=== PATIENT | female | born 1980 | race Caucasian/White ===

== ENCOUNTER → 2017-12-04 13:45 | Outpatient (CLI) | payer MEDICAID, SELFPAY ==
[2017-12-04 16:01] LABS: hCG Titer Quant., Serum 427 mIU/mL (<9 non-preg)
== END ==
PROVIDERS: Visit Provider Obstetrics & Gynecology
DX: O20.0 Threatened abortion (principal); Z3A.00 Weeks of gestation of pregnancy not specified
CPT/HCPCS: 36415; 84702

== ENCOUNTER → 2017-12-06 11:41 | Outpatient (CLI) | payer MEDICAID, SELFPAY ==
[2017-12-06 14:26] LABS: hCG Titer Quant., Serum 67 mIU/mL (<9 non-preg)
== END ==
PROVIDERS: Visit Provider Obstetrics & Gynecology
DX: O20.0 Threatened abortion (principal); Z3A.00 Weeks of gestation of pregnancy not specified
CPT/HCPCS: 36415; 84702

== ENCOUNTER → 2018-05-27 14:19 | Outpatient (CLI) | payer SELFPAY ==
[2018-05-27 20:13] LABS: Pregnancy, Serum, hCG Quali. NEGATIVE Negative (0-9 Nonpreg)
[2018-05-28 08:39] LABS: Progesterone Level 17.45 ng/mL (See Comment)
== END ==
PROVIDERS: Visit Provider Obstetrics & Gynecology
DX: N97.0 Female infertility associated with anovulation (principal)
CPT/HCPCS: 36415; 84144; 84703

== ENCOUNTER → 2018-06-27 10:46 | Outpatient (CLI) | payer SELFPAY ==
[2018-06-27 12:27] LABS: Progesterone Level 13.53 ng/mL (See Comment)
== END ==
PROVIDERS: Visit Provider Obstetrics & Gynecology
DX: N97.0 Female infertility associated with anovulation (principal)
CPT/HCPCS: 36415; 84144

== ENCOUNTER → 2018-07-25 10:29 | Outpatient (CLI) | payer SELFPAY ==
[2018-07-25 14:11] LABS: Progesterone Level 16.15 ng/mL (See Comment)
== END ==
PROVIDERS: Visit Provider Obstetrics & Gynecology
DX: N97.0 Female infertility associated with anovulation (principal)
CPT/HCPCS: 36415; 84144

== ENCOUNTER → 2018-08-28 16:05 | Outpatient (CLI) | payer MEDICAID, SELFPAY ==
[2018-08-28 20:50] LABS: Chlamydia Trachomatis by PCR Negative (Negative); Neisserai gonorrhoeae by PCR Negative (Negative); Probe Check PASS; Sample Adequacy Control PASS; Specimen Processing Control PASS
[2018-09-03 10:33] LABS: HPV Reflexed? NOT INDICATED
== END ==
PROVIDERS: Visit Provider Obstetrics & Gynecology
DX: Z12.4 Encounter for screening for malignant neoplasm of cervix (principal); Z11.3 Encounter for screening for infections with a predominantly sexual mode of transmission
CPT/HCPCS: 87491; 87591; 87624; 88175; G0145

== ENCOUNTER → 2018-09-18 11:07 | Outpatient (CLI) | payer MEDICAID, SELFPAY ==
[2018-09-18 13:49] LABS: Color, Urine Yellow (Yellow); Glucose, Dipstick Normal (Normal); Ketone-Dipstick Negative (Negative); Leukocyte Esterase-Dipstick 500 /ul (Negative); Nitrite-Dipstick Negative (Negative); Occult Blood-Urine Negative /ul (Negative); Protein-Dipstick Negative (Negative); Urine Bilirubin Dipstick Negative (Negative); Urine Clarity Cloudy (Clear); Urine Urobilinogen Normal (Normal)
[2018-09-18 13:52] LABS: Absolute Lymphocyte Count 1.16 X10^3/ul (0.83-4.51); Absolute Neutrophil Count 6.6 X10^3/uL (2.0-7.7); Basophil# 0.01 X10^3/uL; Basophil% 0.1 % (0-1); Eosinophil# 0.05 X10^3/uL; Eosinophils% 0.6 % (0-5); Hematocrit 40.3 % (37-47); Hemoglobin 13.2 g/dl (12.0-15.0); Lymphocyte # 1.16 X10^3/ul (4.0); Lymphocyte % 13.8 % (19-41); Mean Corp Hgb Conc 32.8 g/gl (32-36); Mean Corpuscular Hgb 30.1 pg (27.0-32.0); Mean Platelet Vol. 10.3 fl (6.2-12.0); Monocyte# 0.55 X10^3/uL; Monocyte% 6.6 % (0-10); Neutrophil # 6.61 X10^3/uL (2.7-7.7); Neutrophil % 78.8 % (47-70); Platelet Count 313 K/mm3 (150-450); RBC Distribution Width CV 13.4 % (11.6-14.6); RBC Distribution Width SD 44.6 fl (35.1-43.9); Red Blood Count 4.38 M/mm3 (4.2-5.4); White Blood Count 8.4 K/mm3 (4.4-11.0)
[2018-09-18 13:54] LABS: POSITIVE COUNT NO; POSITIVE DIFFERENTIAL NO; POSITIVE MORPHOLOGY NO
[2018-09-18 14:00] LABS: Amphetamine Urine VISTA NEGATIVE (<1000 ng/mL); Barbiturate Urine VISTA NEGATIVE (< 200 ng/mL); Benzodiazepine Urine VISTA NEGATIVE (< 200 ng/mL); Cocaine Urine VISTA NEGATIVE (< 300 ng/mL); Ecstacy Urine VISTA NEGATIVE (< 500 ng/mL); Methadone Urine VISTA NEGATIVE (< 300 ng/mL); PCP Urine VISTA NEGATIVE (< 25 ng/mL); THC Urine VISTA NEGATIVE (< 50 ng/mL); Vista UDS pH Range 6
[2018-09-18 14:11] LABS: Thyroid Stim Hormone (TSH) 0.88 uIU/mL (0.358-3.74)
[2018-09-18 14:51] LABS: HIV - WCH Non-Reactive (Nonreactive); Rubella IgG 136.1 IU/mL
[2018-09-19 01:35] LABS: Prenatal RPR NONREACTIVE (NONREACTIVE)
[2018-09-21 11:29] LABS: HEPATITIS B SURFACE AG Negative (Negative); Hep C Antibodies 0.1 s/co ratio (0.0-0.9)
== END ==
PROVIDERS: Visit Provider Obstetrics & Gynecology
DX: Z34.81 Encounter for supervision of other normal pregnancy, first trimester (principal)
CPT/HCPCS: 36415; 80307; 81002; 84443; 85025; 86703; 86762; 86803; 87340

== ENCOUNTER → 2019-01-07 10:10 | Outpatient (CLI) | payer MEDICAID, SELFPAY ==
[2019-01-07 14:26] LABS: Hematocrit 36.8 % (37-47); Hemoglobin 11.8 g/dl (12.0-15.0); Mean Corp Hgb Conc 32.1 g/gl (32-36); Mean Corpuscular Hgb 29.1 pg (27.0-32.0); Mean Corpuscular Volume 90.6 fL (81-99); Mean Platelet Vol. 9.8 fl (6.2-12.0); Platelet Count 245 K/mm3 (150-450); RBC Distribution Width CV 13.2 % (11.6-14.6); RBC Distribution Width SD 42.9 fl (35.1-43.9); Red Blood Count 4.06 M/mm3 (4.2-5.4)
[2019-01-07 14:28] LABS: Scan Indicated on CBC? Y/N NO
[2019-01-07 14:30] LABS: Glucose Challenge Gest 1H 50g 108 mg/dL (70-140)
== END ==
PROVIDERS: Visit Provider Obstetrics & Gynecology
DX: Z34.83 Encounter for supervision of other normal pregnancy, third trimester (principal)
CPT/HCPCS: 36415; 82950; 85027

== ENCOUNTER 2019-02-21 17:11 | Inpatient (IN) | payer MEDICAID, SELFPAY ==
[2019-02-21] MEDS: Lactated Ringers 1,000 ML 50 ML IV (16:15)
[2019-02-21] MEDS: Betamethasone/Betamethasone 30 MG/5 ML Vial 12 MG IM (16:31)
[2019-02-21 16:37] LABS: Hematocrit 34.9 % (37-47); Hemoglobin 11.6 g/dl (12.0-15.0); Mean Corp Hgb Conc 33.2 g/gl (32-36); Mean Corpuscular Hgb 27.8 pg (27.0-32.0); Mean Corpuscular Volume 83.5 fL (81-99); Mean Platelet Vol. 10.3 fl (6.2-12.0); Platelet Count 226 K/mm3 (150-450); RBC Distribution Width CV 13.9 % (11.6-14.6); RBC Distribution Width SD 41.8 fl (35.1-43.9); Red Blood Count 4.18 M/mm3 (4.2-5.4); White Blood Count 10.1 K/mm3 (4.4-11.0)
[2019-02-21 16:40] LABS: Scan Indicated on CBC? Y/N NO
[2019-02-21 16:43] LABS: International Normalized Ratio 0.9; Prothrombin Time (Protime)PT. 12.1 SECONDS (11.7-14.9)
[2019-02-21 16:44] LABS: Partial Thromboplast Time 22.9 Seconds (24.1-36.2)
[2019-02-21 16:50] LABS: AST(SGOT) 20 U/L (15-37); Alanine Aminotransfer ALT/SGPT 18 U/L (13-56); Creatinine, Serum 0.82 mg/dL (0.55-1.02); EST Glomerular Filtration Rate 83 mL/min (>60); Est Glom Filt Rate - Afr Amer 100 mL/min (>60); Uric Acid 5.9 mg/dL (2.6-6.0)
[2019-02-21] MEDS: Magnesium Sulfate 20 GM/500 ML BAG IV (16:50)
--- NOTE | 2019-02-21 17:06 | HP.PCM_ITS ---
- Problem List (1) Severe pre-eclampsia affecting fifth Status: Acute (2) Advanced maternal age during in third trimester Status: Acute History Date of Admission: 02/21/19 Final MARYCARMEN: 04/06/19 Gestational age: 33 Weeks and 5 Days History of this : This is a 38 year-old, G 5P2, at 33 and 5 weeks gestational age with irregular contractions and was found to have severely elevated blood pressures in the 180s-190s over 110s to 120s. She denied any headache blurry vision nausea vomiting or right upper quadrant pain upon admission, and she was initially stabilized with 2 doses of IV labetalol and was given 6 g magnesium sulfate followed by 2 g an hour. 12 mg of Celestone IM x1 was given. Preeclampsia labs were sent and returned within normal limits, urine protein still pending. She denies any vaginal bleeding or loss of fluid and admits good movement. She has had an occasional elevated blood pressure in the office but was not di agnosed with chronic hypertension and has not been on any medications. Allergies Penicillins Allergy (Verified 10/21/13 21:58) Rash Home Medications: Home Medications Vits [Prenatabs FA ] 1 tablet PO DAILY 10/14/13 Oxycodone HCl/Acetaminophen [Percocet 5/325] 1 - 2 tablet PO Q4H PRN PRN #20 tablet 11/08/13 Smoking Status: Never smoker Alcohol: None Number of Fetus(es): 1 Heart Tracins moderate variability reactive no decelerations category I tracing [place]: no regular History Past Pregnancies: Past Pregnancies Delivery Date Name GA/Weeks Outcome Route Weight Infant Gender Labor Length Anesthesia Delivery Location Provider FOB 11 39 [id number] 14 [phone] 4 sab 18 7 sab Labs: Mom's Problem List Problem Status Onset Code Severe pre-eclampsia affecting fifth Acute O14.10, O09.40 Advanced maternal age during in third trimester Acute Mom's Labs & Results 02/21/19 02/21/19 02/21/19 16:16 16:16 16:16 WBC 10.1 RBC 4.18 L Hgb 11.6 L Hct 34.9 L MCV 83.5 MCH 27.8 MCHC 33.2 RDW 13.9 RDW Differential 41.8 Plt Count 226 MPV 10.3 PT 12.1 INR 0.9 APTT 22.9 L Creatinine 0.82 Est GFR (MDRD) Af Amer 100 Est GFR (MDRD) Non-Af 83 Uric Acid 5.9 AST 20 ALT 18 Social History Smoking Status Never smoker Expected Infant Delivery Method: Spontaneous Vaginal Review of Systems Constitutional: Denies: Fever, Malaise Eyes: Denies: Blurred vision, Vision Change HEENT: Denies: Head Aches, Visual Changes Cardiovascular: Denies: Chest Pain, Palpitations Respiratory: Denies: Cough, Shortness of Breath, Wheezing Gastrointestinal: Reports: Abdominal Pain - contractions. Denies: Diarrhea, Nausea, Vomiting Genitourinary: Denies: Dysuria, Hematuria Musculoskeletal: Denies: Joint Pain, Muscle pain Skin: Denies: Lesions, Rash Neurological: Denies: Blurred vision, Focal weakness, Headaches Psychiatric: Denies: Anxiety, Depression Endocrine: Denies: Heat/ Cold Intolerance Hematologic/ Lymphatic: Denies: Easy Bruising, Easy Bleeding Physical Exam General: Alert, Cooperative, No apparent distress HEENT: Atraumatic, Normocephalic. Negative for: Thyromegaly, Lymphadenopathy Cardiovascular: Regular rate Lungs: Normal air movement Abdomen: Soft, Non Tender, Gravid Neurological: Deep Tendon Reflexes 2+/4 and Symmetrical, Neuro grossly intact. Negative for: Clonus [employer] J[employer]NEY[employer]: Normal external genitalia. Negative for: Vulvar lesions Estimated gestational size: Appropriate for gestational size Presentation: Cephalic Assessment/Plan All Active Problems Severe pre-eclampsia affecting fifth (Acute) Advanced maternal age during in third trimester (Acute) This is a 38 year-old, , at 33w5d weeks gestational age with severe preeclampsia 1. Severe preeclampsia?patient started on magnesium sulfate and IV labetalol per hypertensive protocol. Await urine protein creatinine ratio but preeclampsia labs within normal limits. Patient is symptomatically except for severely elevated blood pressures. We will start 200 mg p.o. labetalol for maintenance. Plan expectant management for 48 hours for administration of steroids and consider delivery at 34 weeks. Growth ultrasound ordered. urine tox screen ordered. 2. Prematurity?first dose of Celestone given, give second dose in 24 hours. 3. Advanced maternal age
--- NOTE | 2019-02-21 17:11 | US_ITS ---
STUDY: SECOND AND THIRD TRIMESTER OBSTETRICAL ULTRASOUND - LIMITED REASON FOR EXAM: Female, 38 years old. Growth. LMP: June 30, 2018 PRIOR ULTRASOUND: None. TECHNIQUE: Transabdominal TECHNICAL QUALITY: Adequate. FINDINGS: There is a single intrauterine fetus. The fetus is in a cephalic presentation. There is demonstrated cardiac activity with a heart rate of 125 bpm. There is a normal amniotic fluid volume. The largest amniotic fluid pocket measures 5.05 cm. The amniotic fluid index (JUNG) is 15.65 cm. The placenta is anterior and not low lying There are Grade 1 placental changes. The cervix measures 2.90 cm in length. BIOMETRY: BPD: 8.33 cm: 33 weeks, 4 days HC: 31.00 cm: 34 weeks, 5 days AC: 29.17 cm: 33 weeks, 2 days FL: 6.39 cm: 33 weeks, 1 days Age by LMP: 33 weeks, 5 days. MARYCARMEN by LMP: April 06, 2019. age by current US: 33 weeks, 5 days. MARYCARMEN by current US: April 06, 2019. Estimated weight: 2165 grams, +/- 316 grams, 31 percentile. US/OB Limited With Biometrics IMPRESSION: Single intrauterine with an estimated gestational age by ultrasound of 33 weeks and 5 days and an MARYCARMEN of April 06, 2019. Electronically Signed: Shasta Krause MD at 8:39 EDT Tel , Service support ,
[2019-02-21] MEDS: Labetalol 200 MG Tablet PO ×2 (17:28→22:06)
[2019-02-21 17:39] VITALS: BMI 35.3
[2019-02-21 18:11] LABS: Protein, Urine (Random) 9.1 mg/dL (<11.9); Protein:Creat Ratio 155 mg/g CRE (0-200)
[2019-02-21 18:14] LABS: Fibrinogen 482 mg/dl (203-444)
[2019-02-21 18:14] LABS: Amphetamine Urine VISTA NEGATIVE (<1000 ng/mL); Barbiturate Urine VISTA NEGATIVE (< 200 ng/mL); Benzodiazepine Urine VISTA NEGATIVE (< 200 ng/mL); Cocaine Urine VISTA NEGATIVE (< 300 ng/mL); Ecstacy Urine VISTA NEGATIVE (< 500 ng/mL); Methadone Urine VISTA NEGATIVE (< 300 ng/mL); PCP Urine VISTA NEGATIVE (< 25 ng/mL); THC Urine VISTA NEGATIVE (< 50 ng/mL); Vista UDS pH Range 6
[2019-02-21 19:59] LABS: Probe Check PASS
[2019-02-21 20:00] LABS: Group B Strep DNA By PCR POSITIVE (Negative)
[2019-02-22] MEDS: Magnesium Sulfate 20 GM/500 ML BAG IV ×2 (04:58→16:09)
[2019-02-22 06:28] LABS: Absolute Lymphocyte Count 0.91 X10^3/ul (0.83-4.51); Absolute Neutrophil Count 11.1 X10^3/uL (2.0-7.7); Hematocrit 34.8 % (37-47); Hemoglobin 11.3 g/dl (12.0-15.0); Lymphocyte # 0.91 X10^3/ul (4.0); Lymphocyte % 7.2 % (19-41); Mean Corp Hgb Conc 32.5 g/gl (32-36); Mean Corpuscular Hgb 27.2 pg (27.0-32.0); Mean Corpuscular Volume 83.9 fL (81-99); Mean Platelet Vol. 10.5 fl (6.2-12.0); Monocyte# 0.47 X10^3/uL; Monocyte% 3.7 % (0-10); Neutrophil # 11.14 X10^3/uL (2.7-7.7); Neutrophil % 88.7 % (47-70); Platelet Count 236 K/mm3 (150-450); RBC Distribution Width CV 14.1 % (11.6-14.6); RBC Distribution Width SD 42.8 fl (35.1-43.9); Red Blood Count 4.15 M/mm3 (4.2-5.4); White Blood Count 12.6 K/mm3 (4.4-11.0)
[2019-02-22 06:31] LABS: POSITIVE COUNT NO; POSITIVE DIFFERENTIAL NO; POSITIVE MORPHOLOGY NO
--- NOTE | 2019-02-22 06:47 | NURSING ---
I&O total for this shift
[2019-02-22 06:53] LABS: BUN 9 mg/dL (7-18); Creatinine, Serum 0.88 mg/dL (0.55-1.02); Glucose 141 mg/dL (74-106)
[2019-02-22 06:54] LABS: ALB/GLOB Ratio 0.6 RATIO (0.9-2.4); AST(SGOT) 18 U/L (15-37); Alanine Aminotransfer ALT/SGPT 19 U/L (13-56); Albumin, Serum 2.6 g/dL (3.2-5.0); Alkaline Phosphatase 184 U/L (45-117); Anion Gap 10 (5-15); BUN/Creat Ratio 10.2 RATIO (10-20); Calcium,Total 7.7 mg/dL (8.5-10.1); Chloride 106 mmol/L (98-107); EST Glomerular Filtration Rate 76 mL/min (>60); Est Glom Filt Rate - Afr Amer 92 mL/min (>60); Globulin 4.2 g/dL (2.2-4.2); Protein, Total 6.8 g/dL (6.4-8.2); Sodium Level 137 mmol/L (136-145)
--- NOTE | 2019-02-22 09:59 | PN.OBGYN_ITS ---
Patient Problems: Active and Suspected Problems GBS (group B Streptococcus carrier), +RV culture, currently (Acute) Severe pre-eclampsia affecting fifth (Acute) Advanced maternal age during in third trimester (Acute) Subjective: no BRAVO BV no vb lof good fm no regular ctx - Physical Exam General: Alert, Oriented x3 Lungs: Normal air movement Cardiovascular: Regular rate Abdomen: Soft, Non Tender Extremities: - - no clonus Neurological: Cranial nerves II-XII grossly intact Weight: 198 lb 3.129 oz Body Mass Index (BMI) 35.3 Intake and Output for Last 24 Hours 02/20/19 02/21/19 02/22/19 23:59 23:59 23:59 Intake Total 2100 / 2100 Output Total 400 / 400 1800 / 1800 Balance -400 / -400 300 / 300 Laboratory Tests Past 24 Hrs 02/21/19 02/21/19 02/21/19 16:16 16:16 16:16 WBC 10.1 RBC 4.18 L Hgb 11.6 L Hct 34.9 L MCV 83.5 MCH 27.8 MCHC 33.2 RDW 13.9 RDW Differential 41.8 Plt Count 226 MPV 10.3 Immature Gran % (Auto) Neut % (Auto) Lymph % (Auto) [place] % (Auto) Eos % (Auto) Baso % (Auto) Absolute Neuts (auto) Absolute Lymphs (auto) Total Counted PT 12.1 INR 0.9 APTT 22.9 L Fibrinogen Sodium Potassium Chloride Carbon Dioxide Anion Gap BUN Creatinine 0.82 Estim Creat Clear Calc Est GFR (MDRD) Af Amer 100 Est GFR (MDRD) Non-Af 83 BUN/Creatinine Ratio Glucose Uric Acid 5.9 Calcium Total Bilirubin AST 20 ALT 18 Alkaline Phosphatase Total Protein Albumin Globulin Albumin/Globulin Ratio U Random Total Protein Urine Creatinine Protein/Creatinin Ratio Urine Opiates Screen Urine Methadone Screen Ur Barbiturates Screen Ur Phencyclidine Scrn Ur Amphetamines Screen U Methamphetamin-MDMA U Benzodiazepines Scrn Urine Cocaine Screen U Cannabinoids Screen Ur Drug Screen Comment Group B Strep DNA Specimen Comment 02/21/19 02/21/19 02/21/19 16:16 17:45 17:45 WBC RBC Hgb Hct MCV MCH MCHC RDW RDW Differential Plt Count MPV Immature Gran % (Auto) Neut % (Auto) Lymph % (Auto) [place] % (Auto) Eos % (Auto) Baso % (Auto) Absolute Neuts (auto) Absolute Lymphs (auto) Total Counted PT INR APTT Fibrinogen 482 H Sodium Potassium Chloride Carbon Dioxide Anion Gap BUN Creatinine Estim Creat Clear Calc Est GFR (MDRD) Af Amer Est GFR (MDRD) Non-Af BUN/Creatinine Ratio Glucose Uric Acid Calcium Total Bilirubin AST ALT Alkaline Phosphatase Total Protein Albumin Globulin Albumin/Globulin Ratio U Random Total Protein 9.1 Urine Creatinine 58.80 Protein/Creatinin Ratio 155 Urine Opiates Screen NEGATIVE Urine Methadone Screen NEGATIVE Ur Barbiturates Screen NEGATIVE Ur Phencyclidine Scrn NEGATIVE Ur Amphetamines Screen NEGATIVE U Methamphetamin-MDMA NEGATIVE U Benzodiazepines Scrn NEGATIVE Urine Cocaine Screen NEGATIVE U Cannabinoids Screen NEGATIVE Ur Drug Screen Comment Group B Strep DNA Specimen Comment 02/21/19 02/22/19 02/22/19 18:50 06:15 06:15 WBC 12.6 H RBC 4.15 L Hgb 11.3 L Hct 34.8 L MCV 83.9 MCH 27.2 MCHC 32.5 RDW 14.1 RDW Differential 42.8 Plt Count 236 MPV 10.5 Immature Gran % (Auto) 0.400 Neut % (Auto) 88.7 H Lymph % (Auto) 7.2 L [place] % (Auto) 3.7 Eos % (Auto) 0.0 Baso % (Auto) 0.0 Absolute Neuts (auto) 11.1 H Absolute Lymphs (auto) 0.91 Total Counted Not Reportable PT INR APTT Fibrinogen Sodium 137 Potassium 4.0 Chloride 106 Carbon Dioxide 21.0 Anion Gap 10 BUN 9 Creatinine 0.88 Estim Creat Clear Calc 71.70 Est GFR (MDRD) Af Amer 92 Est GFR (MDRD) Non-Af 76 BUN/Creatinine Ratio 10.2 Glucose 141 H Uric Acid Calcium 7.7 L Total Bilirubin 0.20 AST 18 ALT 19 Alkaline Phosphatase 184 H Total Protein 6.8 Albumin 2.6 L Globulin 4.2 Albumin/Globulin Ratio 0.6 L U Random Total Protein Urine Creatinine Protein/Creatinin Ratio Urine Opiates Screen Urine Methadone Screen Ur Barbiturates Screen Ur Phencyclidine Scrn Ur Amphetamines Screen U Methamphetamin-MDMA U Benzodiazepines Scrn Urine Cocaine Screen U Cannabinoids Screen Ur Drug Screen Comment Group B Strep DNA POSITIVE H Specimen Comment Not Reportable Medical Necessity - Tobacco Use Smoking Status: Never smoker Assessment/Plan All Active Problems GBS (group B Streptococcus carrier), +RV culture, currently (Acute) Severe pre-eclampsia affecting fifth (Acute) Advanced maternal age during in third trimester (Acute) This is a 38 year-old, , at 33w6d weeks gestational age with severe preeclampsia 1. Severe preeclampsia?patient started on magnesium sulfate and IV labetalol per hypertensive protocol. Await urine protein creatinine ratio but preeclampsia labs within normal limits. Patient is symptomatically except for severely elevated blood pressures. We will start 200 mg p.o. labetalol for maintenance. Plan expectant management for 48 hours for administration of steroids and consider delivery at 34 weeks. Growth ultrasound ordered. urine tox screen ordered. 2. Prematurity?first dose of Celestone given, give second dose today. 3. Advanced maternal age
[2019-02-22] MEDS: Labetalol 200 MG Tablet PO ×2 (10:21→21:18)
[2019-02-22] MEDS: Lactated Ringers 1,000 ML 50 ML IV (12:30)
--- NOTE | 2019-02-22 13:38 | PCM.PN.OB ---
Patient Problems: Active and Suspected Problems GBS (group B Streptococcus carrier), +RV culture, currently (Acute) Severe pre-eclampsia affecting fifth (Acute) Advanced maternal age during in third trimester (Acute) Subjective: no BRAVO BV, co some anxiety about the current situation, questions answered for the patient. she denies any vb lof admits good fm. no N V RUQ pain. - Physical Exam General: Alert, Oriented x3 Weight: 198 lb 3.129 oz Body Mass Index (BMI) 35.3 Intake and Output for Last 24 Hours 02/20/19 02/21/19 02/22/19 23:59 23:59 23:59 Intake Total 2698 / 2698 Output Total 400 / 400 2225 / 2225 Balance -400 / -400 473 / 473 Laboratory Tests Past 24 Hrs 02/21/19 02/21/19 02/21/19 16:16 16:16 16:16 WBC 10.1 RBC 4.18 L Hgb 11.6 L Hct 34.9 L MCV 83.5 MCH 27.8 MCHC 33.2 RDW 13.9 RDW Differential 41.8 Plt Count 226 MPV 10.3 Immature Gran % (Auto) Neut % (Auto) Lymph % (Auto) [place] % (Auto) Eos % (Auto) Baso % (Auto) Absolute Neuts (auto) Absolute Lymphs (auto) Total Counted PT 12.1 INR 0.9 APTT 22.9 L Fibrinogen Sodium Potassium Chloride Carbon Dioxide Anion Gap BUN Creatinine 0.82 Estim Creat Clear Calc Est GFR (MDRD) Af Amer 100 Est GFR (MDRD) Non-Af 83 BUN/Creatinine Ratio Glucose Uric Acid 5.9 Calcium Total Bilirubin AST 20 ALT 18 Alkaline Phosphatase Total Protein Albumin Globulin Albumin/Globulin Ratio U Random Total Protein Urine Creatinine Protein/Creatinin Ratio Urine Opiates Screen Urine Methadone Screen Ur Barbiturates Screen Ur Phencyclidine Scrn Ur Amphetamines Screen U Methamphetamin-MDMA U Benzodiazepines Scrn Urine Cocaine Screen U Cannabinoids Screen Ur Drug Screen Comment Group B Strep DNA Specimen Comment 02/21/19 02/21/19 02/21/19 16:16 17:45 17:45 WBC RBC Hgb Hct MCV MCH MCHC RDW RDW Differential Plt Count MPV Immature Gran % (Auto) Neut % (Auto) Lymph % (Auto) [place] % (Auto) Eos % (Auto) Baso % (Auto) Absolute Neuts (auto) Absolute Lymphs (auto) Total Counted PT INR APTT Fibrinogen 482 H Sodium Potassium Chloride Carbon Dioxide Anion Gap BUN Creatinine Estim Creat Clear Calc Est GFR (MDRD) Af Amer Est GFR (MDRD) Non-Af BUN/Creatinine Ratio Glucose Uric Acid Calcium Total Bilirubin AST ALT Alkaline Phosphatase Total Protein Albumin Globulin Albumin/Globulin Ratio U Random Total Protein 9.1 Urine Creatinine 58.80 Protein/Creatinin Ratio 155 Urine Opiates Screen NEGATIVE Urine Methadone Screen NEGATIVE Ur Barbiturates Screen NEGATIVE Ur Phencyclidine Scrn NEGATIVE Ur Amphetamines Screen NEGATIVE U Methamphetamin-MDMA NEGATIVE U Benzodiazepines Scrn NEGATIVE Urine Cocaine Screen NEGATIVE U Cannabinoids Screen NEGATIVE Ur Drug Screen Comment Group B Strep DNA Specimen Comment 02/21/19 02/22/19 02/22/19 18:50 06:15 06:15 WBC 12.6 H RBC 4.15 L Hgb 11.3 L Hct 34.8 L MCV 83.9 MCH 27.2 MCHC 32.5 RDW 14.1 RDW Differential 42.8 Plt Count 236 MPV 10.5 Immature Gran % (Auto) 0.400 Neut % (Auto) 88.7 H Lymph % (Auto) 7.2 L [place] % (Auto) 3.7 Eos % (Auto) 0.0 Baso % (Auto) 0.0 Absolute Neuts (auto) 11.1 H Absolute Lymphs (auto) 0.91 Total Counted Not Reportable PT INR APTT Fibrinogen Sodium 137 Potassium 4.0 Chloride 106 Carbon Dioxide 21.0 Anion Gap 10 BUN 9 Creatinine 0.88 Estim Creat Clear Calc 71.70 Est GFR (MDRD) Af Amer 92 Est GFR (MDRD) Non-Af 76 BUN/Creatinine Ratio 10.2 Glucose 141 H Uric Acid Calcium 7.7 L Total Bilirubin 0.20 AST 18 ALT 19 Alkaline Phosphatase 184 H Total Protein 6.8 Albumin 2.6 L Globulin 4.2 Albumin/Globulin Ratio 0.6 L U Random Total Protein Urine Creatinine Protein/Creatinin Ratio Urine Opiates Screen Urine Methadone Screen Ur Barbiturates Screen Ur Phencyclidine Scrn Ur Amphetamines Screen U Methamphetamin-MDMA U Benzodiazepines Scrn Urine Cocaine Screen U Cannabinoids Screen Ur Drug Screen Comment Group B Strep DNA POSITIVE H Specimen Comment Not Reportable Medical Necessity - Tobacco Use Smoking Status: Never smoker Assessment/Plan All Active Problems GBS (group B Streptococcus carrier), +RV culture, currently (Acute) Severe pre-eclampsia affecting fifth (Acute) Advanced maternal age during in third trimester (Acute) This is a 38 year-old, , at 33w6d weeks gestational age with severe preeclampsia 1. Severe preeclampsia?plan 48 hrs of magnesium sulfate and PRN IV labetalol per hypertensive protocol. Patient given 2 doses initially but now stable on 200mg oral labetalol BID. Await 24 hour urine protein, but ratio was normal and serial preeclampsia labs are within normal limits. Plan expectant management for 48 hours for administration of steroids and consider delivery at 34 weeks. Growth ultrasound WNL. urine tox screen negative. 2. Prematurity?s/p 2 doses 3. Advanced maternal age
[2019-02-22] MEDS: Acetaminophen 325 MG Tablet 650 MG PO (15:15)
[2019-02-22] MEDS: Betamethasone/Betamethasone 30 MG/5 ML Vial 12 MG IM (16:09)
[2019-02-22] MEDS: Mag Hydrox/Al Hydrox/Simeth 30 ML UDC PO (16:41)
[2019-02-22 18:40] LABS: Creat.Clear Total Volume 2375 mL; Creatinine Clearance 96 ml/min (100-200); Creatinine Serum Creat 0.8 mg/dL (0.6-1.0); Creatinine Urine 47.5 mg/dL (NO RANGE EST.); EST Glomerular Filtration Rate 83 mL/min (>60); Est Glom Filt Rate - Afr Amer 100 mL/min (>60)
[2019-02-22 18:41] LABS: 24 Hour Urine Protein 123.5 mg/24HR (<150 MG/24HR); 24HR. UA Prot. Total Volume 2375 mL; Urine Protein (24 Hour) < 6.0 mg/dL (<11.9)
[2019-02-23] MEDS: Magnesium Sulfate 20 GM/500 ML BAG IV (03:06)
[2019-02-23] MEDS: Lactated Ringers 1,000 ML 50 ML IV (08:25)
[2019-02-23] MEDS: Labetalol 200 MG Tablet PO ×2 (10:04→22:10)
[2019-02-23] MEDS: Acetaminophen 325 MG Tablet 650 MG PO (11:06)
--- NOTE | 2019-02-23 12:55 | PCM.PN.OB ---
Patient Problems: Active and Suspected Problems GBS (group B Streptococcus carrier), +RV culture, currently (Acute) Severe pre-eclampsia affecting fifth (Acute) Advanced maternal age during in third trimester (Acute) Subjective: Patient without complaints. Denies any contractions or headaches or other PIH symptoms. Magnesium sulfate still running at 2 g an hour. Blood pressures have normalized and she is on 200 mg of labetalol twice daily. Patient has received 2 doses of steroids to assist with improving lung maturity should delivery be necessary. - Physical Exam Afebrile, vital signs stable. Blood pressures okay. Weight: 201 lb Body Mass Index (BMI) 35.3 Intake and Output for Last 24 Hours 02/21/19 02/22/19 02/23/19 23:59 23:59 23:59 Intake Total 3450 / 3450 600 / 600 Output Total 400 / 400 2700 / 2700 1460 / 1460 Balance -400 / -400 750 / 750 -860 / -860 Laboratory Tests Past 24 Hrs 02/21/19 02/21/19 17:45 17:45 Creatinine 0.8 Est GFR (MDRD) Af Amer 100 Est GFR (MDRD) Non-Af 83 Urine Collection Time 24.0 24.0 Timed Urine Volume 2375 2375 Urine Creatinine 47.5 Creatinine Clearance 96 L Ur Total Protein 24 Hr 123.5 Urine Total Protein < 6.0 heart tones are reassuring however variability is diminished due to magnesium sulfate. All PIH labs are normal including 24-hour urine for protein. Uric acid 5.8. Medical Necessity - Tobacco Use Smoking Status: Never smoker Assessment/Plan All Active Problems GBS (group B Streptococcus carrier), +RV culture, currently (Acute) Severe pre-eclampsia affecting fifth (Acute) Advanced maternal age during in third trimester (Acute) 34-week gestation with severe -induced hypertension now normal blood pressures on oral labetalol and 2 g of magnesium sulfate per hour. Steroids on board for lung maturity. I have discussed with Dr. Pineda from maternal medicine who agrees with stopping magnesium sulfate to see if blood pressures remain stable. If they do, we plan to continue oral medications and to eventually send home on modified bed rest. Also plan to monitor heart tones at least twice weekly and check labs for PIH weekly. Dr. Pineda recommended delivery at 37 weeks if the patient's blood pressures remained stable. If blood pressures begin to increase proceeding with delivery is recommended.
[2019-02-23] MEDS: Mag Hydrox/Al Hydrox/Simeth 30 ML UDC PO (21:06)
[2019-02-24] MEDS: Acetaminophen 325 MG Tablet 650 MG PO ×2 (07:55→15:29)
[2019-02-24] MEDS: Ondansetron 4 MG/2 ML Vial IV (07:55)
--- NOTE | 2019-02-24 08:35 | PCM.PN.OB ---
Patient Problems: Active and Suspected Problems GBS (group B Streptococcus carrier), +RV culture, currently (Acute) Severe pre-eclampsia affecting fifth (Acute) Advanced maternal age during in third trimester (Acute) Subjective: Patient without complaints. Denies any PIH symptoms. Some loose stools x5 overnight. Magnesium sulfate stopped yesterday morning. Blood pressures okay since then except slightly elevated this morning. Markedly more movement after stopping magnesium sulfate. Occasional moderate contraction. - Physical Exam Afebrile, vital signs stable. Single blood pressure of 140/85 approximately. Weight: 201 lb 6.4 oz Body Mass Index (BMI) 35.3 Intake and Output for Last 24 Hours 02/22/19 02/23/19 02/24/19 23:59 23:59 23:59 Intake Total 3450 / 3450 950 / 950 Output Total 2700 / 2700 1660 / 1660 Balance 750 / 750 -710 / -710 Reactive nonstress test. Occasional contraction noted on monitor. Cervix is fingertip 50 high unripe. Medical Necessity - Tobacco Use Smoking Status: Never smoker Assessment/Plan All Active Problems GBS (group B Streptococcus carrier), +RV culture, currently (Acute) Severe pre-eclampsia affecting fifth (Acute) Advanced maternal age during in third trimester (Acute) Patient with gestational hypertension controlled with p.o. labetalol marginally. Will increase labetalol to 200 mg 3 times daily. We will normalize diet. Discussed possible induction should blood pressures continue to rise. Continue nonstress test every shift.
[2019-02-24] MEDS: Labetalol 200 MG Tablet PO ×3 (09:01→22:45)
[2019-02-24] MEDS: Mag Hydrox/Al Hydrox/Simeth 30 ML UDC PO (16:47)
[2019-02-25] MEDS: Labetalol 200 MG Tablet PO (05:58)
[2019-02-25] MEDS: Acetaminophen 325 MG Tablet 650 MG PO (06:05)
--- NOTE | 2019-02-25 09:04 | PCM.PN.OB ---
Patient Problems: Active and Suspected Problems Severe pre-eclampsia affecting fifth (Acute) Advanced maternal age during in third trimester (Acute) Subjective: Patient without complaints. Denies any PIH symptoms. Occasional mild contraction noted. - Physical Exam Afebrile, vital signs stable. Maximum blood pressure is 140s over 90s. Overnight 120s over 70-80s. Weight: 201 lb 4.513 oz Body Mass Index (BMI) 35.3 Intake and Output for Last 24 Hours 02/23/19 02/24/19 02/25/19 23:59 23:59 23:59 Intake Total 950 / 950 Output Total 1660 / 1660 Balance -710 / -710 No clonus. DTRs 1+. No evidence of -induced hypertension on physical exam. Medical Necessity - Tobacco Use Smoking Status: Never smoker Assessment/Plan All Active Problems GBS (group B Streptococcus carrier), +RV culture, currently (Acute) Severe pre-eclampsia affecting fifth (Acute) Advanced maternal age during in third trimester (Acute) Gestational hypertension at 34+ weeks controlled with p.o. labetalol and bedrest. Blood pressures remained stable after observation. Reactive nonstress test noted. Will slightly increase labetalol dose and discharge to home with extremely close follow-up of blood pressures and condition. Discussed possibility of emergency section should her blood pressures abruptly rise without time for an induction as her cervix is not right. Will send home on labetalol 300 mg in the morning and at 2 PM and 200 mg at at bedtime. Follow-up in 2 days in the office. Also suggested she check blood pressures at home and call with any PIH symptoms.
--- NOTE | 2019-02-25 09:07 | PCM.DC.BLA ---
Discharge Summary Date of Admission: 02/21/19 Date of Discharge: 02/25/19 Summary: Admission diagnosis: Severe -induced hypertension at 34 weeks gestation Discharge diagnosis: Same with gestational hypertension History of present illness: This is a 38-year-old patient who presents with her fifth at 33+ weeks gestation with elevated blood pressures. care has otherwise been uneventful except the patient has had hypertensive issues in the past. Physical exam was unremarkable with deep tendon reflexes increased and some clonus. Patient denied any headache or abdominal discomfort Hospital course patient was admitted and started on IV magnesium sulfate. The hypertensive protocol was initiated and after 2 doses of IV labetalol pressures normalized. Patient was observed and pressures normalized without any additional antihypertensive medications except for oral labetalol. After 24 hours magnesium sulfate was discontinued and her pressures remain stable and in the normal range. We discussed the patient's disposition with maternal- medicine and it was felt that after observation if her pressures did not markedly increase that it would be safe to send her home on bedrest and oral labetalol with close follow-up. Pressures remained stable and it is felt that she is appropriate for discharge. heart tones remained reactive after stopping the IV magnesium sulfate. Occasional contraction is noted. Patient cervix is closed thick high and probably not inducible. Discharge instructions and follow-up: Patient was instructed to continue bedrest at home and to come into the office in 2 days and in 5 days for blood pressure check. We plan PIH labs next Saturday. Patient was also instructed to take her blood pressure at home and to come to labor and delivery with any PIH symptoms. She is to take labetalol 300 mg in the morning and afternoon and 200 mg at hs. Patient Problems: Active and Suspected Problems Severe pre-eclampsia affecting fifth (Acute) Advanced maternal age during in third trimester (Acute) - Physical Exam Weight: 201 lb 4.513 oz Body Mass Index (BMI) 35.3 Intake and Output for Last 24 Hours 02/23/19 02/24/19 02/25/19 23:59 23:59 23:59 Intake Total 950 / 950 Output Total 1660 / 1660 Balance -710 / -710
== END 2019-02-25 10:00 | disposition home or self-care (01) | DRG 566 ==
LOC: WPOUT 02-23 11:42
PROVIDERS: Admitting Provider Obstetrics & Gynecology; Referring Provider Obstetrics & Gynecology; Visit Provider Obstetrics & Gynecology
DX: O14.13 Severe pre-eclampsia, third trimester (principal); O13.3 Gestational [pregnancy-induced] hypertension without significant proteinuria, third trimester; Z22.330 Carrier of Group B streptococcus; O09.523 Supervision of elderly multigravida, third trimester; O09.40 Supervision of pregnancy with grand multiparity, unspecified trimester; Z3A.34 34 weeks gestation of pregnancy
CPT/HCPCS: 36415; 59025; 59050; 76816; 80053; 80307; 82565; 82570; 82575; 84156; 84450; 84460; 84550; 85025; 85027; 85384; 85610; 85730; 87653; 96372; J7120; J0702; J2405

== ENCOUNTER 2019-02-27 01:50 | Inpatient (IN) | payer MEDICAID, SELFPAY ==
[2019-02-26 23:50] VITALS: BMI 35.4
[2019-02-27] VITALS (25 sets, daily range): BP systolic 120–185; BP diastolic 63–106; PULSE 56–82; RESP 16–18; TEMP 36.1–36.8; O2SAT 95–99
[2019-02-27] MEDS: 0.9% Saline Lock 10 ML Syringe IV ×2 (00:59→02:05)
[2019-02-27 01:14] LABS: Mucous, Urine 0 SEEN /hpf (<or=2+)
[2019-02-27 01:19] LABS: Color, Urine Yellow (Yellow); Glucose, Dipstick Normal (Normal); Hematocrit 34.3 % (37-47); Hemoglobin 11.1 g/dl (12.0-15.0); Ketone-Dipstick Negative (Negative); Leukocyte Esterase-Dipstick 500 /ul (Negative); Mean Corp Hgb Conc 32.4 g/gl (32-36); Mean Corpuscular Volume 83.5 fL (81-99); Mean Platelet Vol. 11.1 fl (6.2-12.0); Nitrite-Dipstick Negative (Negative); Occult Blood-Urine 10 /ul (Negative); Platelet Count 236 K/mm3 (150-450); Protein-Dipstick Negative (Negative); RBC Distribution Width CV 13.9 % (11.6-14.6); Red Blood Count 4.11 M/mm3 (4.2-5.4); Specific Gravity, Urine 1.015 (1.002-1.030); Urine Bilirubin Dipstick Negative (Negative); Urine Clarity Cloudy (Clear); Urine Urobilinogen Normal (Normal); White Blood Count 11.1 K/mm3 (4.4-11.0)
[2019-02-27 01:25] LABS: International Normalized Ratio 0.9; Partial Thromboplast Time 22.4 Seconds (24.1-36.2); Prothrombin Time (Protime)PT. 11.9 SECONDS (11.7-14.9); White Blood Cells 25-50 SEEN /hpf (0-5)
[2019-02-27 01:26] LABS: Bacteria 2+ /hpf (None Seen); Red Blood Cells-Urine 0-5 SEEN /hpf (0-5); Squamous Epithelial Cells - UA 5-10 SEEN /hpf (5-10)
[2019-02-27 01:30] LABS: AST(SGOT) 17 U/L (15-37); Alanine Aminotransfer ALT/SGPT 19 U/L (13-56); Creatinine, Serum 1.03 mg/dL (0.55-1.02); EST Glomerular Filtration Rate 64 mL/min (>60); Est Glom Filt Rate - Afr Amer 77 mL/min (>60); Estimated Creatinine Clearance 61.26 ml/min; Protein, Urine (Random) 17.5 mg/dL (<11.9); Protein:Creat Ratio 203 mg/g CRE (0-200); Uric Acid 6.8 mg/dL (2.6-6.0)
[2019-02-27 02:24] LABS: Absolute Lymphocyte Count 1.84 X10^3/ul (0.83-4.51); Absolute Neutrophil Count 8.1 X10^3/uL (2.0-7.7); Basophil# 0.02 X10^3/uL; Basophil% 0.2 % (0-1); Eosinophil# 0.12 X10^3/uL; Lymphocyte # 1.84 X10^3/ul (4.0); Lymphocyte % 16.1 % (19-41); Monocyte# 1.22 X10^3/uL; Monocyte% 10.7 % (0-10); Neutrophil # 8.13 X10^3/uL (2.7-7.7); POSITIVE COUNT NO; POSITIVE DIFFERENTIAL NO; POSITIVE MORPHOLOGY NO
[2019-02-27] MEDS: Labetalol 100 MG/20 ML Vial 20 MG IV ×2 (02:54→03:15)
[2019-02-27] MEDS: Magnesium Sulfate 4gm/100mL 6 GM/150 ML IV.SOLN. IV (02:56)
[2019-02-27] MEDS: Labetalol 100 MG Tablet PO (03:15)
[2019-02-27] MEDS: Magnesium Sulfate 20 GM/500 ML BAG IV ×2 (03:26→13:09)
[2019-02-27] MEDS: Sodium Citrate/Citric Acid 30 ML UDC PO (03:48)
[2019-02-27] MEDS: Oxytocin 30 units/NS 500 ml 30 UNITS/500 ML IV.SOLN 167 UNITS IV (04:30)
[2019-02-27] MEDS: Ketorolac 30 MG/ML Syringe IV ×4 (05:15→22:20)
--- NOTE | 2019-02-27 05:29 | OP.PCM_ITS ---
Report of Operation Date of Procedure: 02/27/19 Pre-Operative Diagnosis: Severe -Induced Hypertension Post-Operative Diagnosis: Severe -Induced Hypertension Surgery/Procedure Performed:: Primary Low Transverse Cervical Section Description of Surgical Findings:: Viable male infant with Apgars of 7/8 and an occiput anterior presentation with clear amniotic fluid and normal three-vessel placenta. test cell technician: Issa Dunaway Type of Anesthesia:: Spinal - With Duramorph Anesthesiologist: Leno Hansen Special Medications: Magnesium sulfate 2 g/h Specimen's removed: Placenta sent to pathology; ABG and VBG sent Drains: Freeman to straight drain Estimated Blood Loss (mL): 500 cc Fluids Replaced: Crystalloid Description of Procedure: Surgeon: Sammy Hathaway MD, FACOG Indication: This is a 38-year-old 5 who presents for her first at 34+ weeks gestation. care has otherwise been uneventful except for recent problems with elevated blood pressure. Specifically, she presented about 6 days ago with extremely high blood pressures and was managed with a hypertensive protocol and then placed on magnesium sulfate. Her blood pressures eventually stabilized and she was sent home on bedrest and oral labetalol. Last evening her blood pressures began to increase and she presented to labor delivery with blood pressures in the 180s over 100s which were not controllable with hypertensive protocol and magnesium sulfate. Patient cervix was closed thick and high and was considered not inducible in the short timeframe necessary to manage her hypertensive crisis. Given this it was decided to proceed with primary section for severe -induced hypertension. PIH labs showed an elevated uric acid of 6.8 and urine protein was elevated but labs were otherwise normal. The patient has been counseled regarding the risk and indications of this procedure including the possibility of bleeding infection and injury to surrounding structures such as bowel bladder. All questions were answered. Procedure: Patient was taken to the operating room where after spinal anesthesia was placed, the patient was prepped and draped in usual sterile fashion and a Freeman catheter was placed. The abdomen was entered through a Pfannenstiel incision and peritoneum was entered bluntly. After developing a bladder flap on the lower uterine segment a low transverse incision was made on the uterus and head was easily delivered onto the operative field the nose mouth and oropharynx were bulb suctioned. Subsequently a viable male infant was born with Apgars of 7/8. The infant was noted to cry move all extremities vigorously on the operative field. The umbilical cord was doubly clamped and ligated and infant handed to special care nursery personnel who were present for the delivery. Placenta was delivered and noted to be 3 vessels and normal and was eventually sent to pathology for routine studies. Uterus was exteriorized and remaining placental tissue was removed. The uterus was then closed in 2 layers first with running locked 0 Vicryl suture followed by a second imbricating layer with 0 Vicryl suture. 0 Vicryl suture was then used in a horizontal mattress interrupted fashion to affect final hemostasis of the uterine incision line. Normal fallopian tubes and ovaries were visualized and the uterus was returned to the pelvis. Hemostasis was noted and rectus abdominis muscles were reapproximated in the midline with interrupted Number 0 Vicryl suture in a horizontal mattress fashion. Fascia was closed with running Number 1 PDS Strata fix suture. Subcutaneous tissue was irrigated with copious amounts of saline solution and then closed with running 3-0 Vicryl suture. Skin was closed with 4-0 monocryl suture in a running subcuticular fashion. Steri strips, telfa, and tape were placed across the incision. The patient tolerated the procedure well and was taken to the recovery room in satisfactory condition. Sponge, needle, and instrument counts were all reportedly correct. EBL was less than 500 cc. Cefotan 2 gms IV was given prior to the procedure. There were no apparent complications of the surgery. Grafts/Implants Used: None - Complications None - Admit VTE Documentation VTE Present on Admission: Yes VTE Mechan Device Prophylaxis: SCD's
--- NOTE | 2019-02-27 05:31 | DCINST_ITS ---
Discharge Diet: No Restrictions Discharge Activity: May not drive while taking narcotic pain medications., May Shower, May Take a Tub Bath May resume sexual activity in: 4-6 weeks Lifting Restrictions: 20 pounds Additional Activity Instructions:: Nothing in the vagina for 4-6 weeks. You may return to work/school in 6 weeks. Call your doctor if your incision/area has: Continuous Slow Oozing, Sudden Increased Bleeding, Increased Pain/ Swelling, Increased Redness, Foul Smelling Discharge Call your doctor if you observe: Fever of 101 or Higher, Inability to urinate, Inability to have a bowel movement, Using more than one pad per hour Additional Instructions: If you experience any of the following, contact your healthcare provider. * Bleeding that soaks a pad every hour for 2 hours * Unrelieved incision or abdominal pain * Swelling, redness, discharge or bleeding from your incision or episiotomy site * Your incision begins to separate * Problems urinating (including inability to urinate or burning while urinating). * Visual changes * Severe headache * Flu-like symptoms * Pain or redness in one of both of your breasts * Pain, warmth, tenderness or swelling in your legs, especially the calf area * Frequent nausea and vomiting * Symptoms of depression or anxiety If you experience any of the following, call 911 or go to the nearest Emergency Room. * Chest pain * Problems breathing * Seizure activity * Partial or complete paralysis of a body part, slurred speech, weakness or drooping of the face, or a sudden inability to walk or hold your balance Allergies/Adverse Reactions: Allergies Penicillins Allergy (Verified 02/26/19 23:50) Rash Medications to take at Discharge Vits [Prenatabs FA ] 1 tablet PO DAILY 10/14/13 Docusate Sodium [Colace] 100 mg PO BID PRN PRN #60 cap 02/27/19 Oxycodone [Oxyir] 5 mg PO Q6H PRN PRN 7 Days #20 tab 02/27/19 Labetalol [Trandate (Beta Fannie)] 200 mg PO BID #60 tab 02/28/19 The following prescriptions were given: Oxycodone [Oxyir] 5 mg PO Q6H PRN PRN 7 Days #20 tab PRN Reason: Severe Pain () Docusate Sodium [Colace] 100 mg PO BID PRN PRN #60 cap PRN Reason: Constipation Labetalol [Trandate (Beta Fannie)] 200 mg PO BID #60 tab Follow-Up: Call to make an appointment with your doctor for an incision check in 1-2 weeks. You will also need a 6 week post- follow up appointment. Test results from this visit will be discussed in further detail at your follow- up appointment, if applicable. Please Follow Up With: Sammy Hathaway MD - [phone] When: Call to make an appointment for an incision check in 2 weeks. Primary Care Physician: Care Physician,No Primary [Primary Care Provider] -
[2019-02-27] MEDS: Lactated Ringers 1,000 ML 100 ML IV ×3 (05:51→22:19)
[2019-02-27] MEDS: Labetalol 200 MG Tablet PO ×2 (09:57→22:20)
[2019-02-28] VITALS (8 sets, daily range): BP systolic 128–153; BP diastolic 78–99; PULSE 66–79; RESP 16–18; TEMP 36.1–37.4; O2SAT 95–99
[2019-02-28] MEDS: Ketorolac 30 MG/ML Syringe IV ×2 (04:40→10:27)
[2019-02-28] MEDS: 0.9% Saline Lock 10 ML Syringe IV (04:40)
[2019-02-28 04:44] LABS: Hematocrit 30.8 % (37-47); Hemoglobin 9.8 g/dl (12.0-15.0); Mean Corp Hgb Conc 31.8 g/gl (32-36); Mean Corpuscular Hgb 26.8 pg (27.0-32.0); Mean Corpuscular Volume 84.4 fL (81-99); Mean Platelet Vol. 10.7 fl (6.2-12.0); Platelet Count 234 K/mm3 (150-450); RBC Distribution Width CV 14.2 % (11.6-14.6); RBC Distribution Width SD 42.4 fl (35.1-43.9); Red Blood Count 3.65 M/mm3 (4.2-5.4); White Blood Count 15.6 K/mm3 (4.4-11.0)
[2019-02-28 04:50] LABS: Scan Indicated on CBC? Y/N NO
[2019-02-28] MEDS: Labetalol 200 MG Tablet PO (08:04)
--- NOTE | 2019-02-28 09:28 | PCM.PN.OB ---
Subjective: Patient without complaints. Tolerating diet well. Denies any PIH symptoms. Positive flatus. Pain well controlled. Wants to be discharged today so she can visit baby in special care nursery in [place]. - Physical Exam Vital Signs Temp Pulse Resp BP Pulse Ox 99.3 F H 72 16 153/99 H 99 02/28/19 08:00 02/28/19 08:00 02/28/19 08:00 02/28/19 08:00 02/28/19 08:00 Oxygen Delivery Method Room Air Weight: 200 lb 2.876 oz Body Mass Index (BMI) 35.4 Intake and Output for Last 24 Hours 02/26/19 02/27/19 02/28/19 23:59 23:59 23:59 Intake Total 2821 / 2821 662 / 662 Output Total 2650 / 2650 1100 / 1100 Balance 171 / 171 -438 / -438 Laboratory Tests Past 24 Hrs 02/28/19 04:35 WBC 15.6 H RBC 3.65 L Hgb 9.8 L Hct 30.8 L MCV 84.4 MCH 26.8 L MCHC 31.8 L RDW 14.2 RDW Differential 42.4 Plt Count 234 MPV 10.7 Wound is clean, dry, intact. Good urine output. Hemoglobin okay. Blood pressures for the most part are in the normal range. Medical Necessity - Tobacco Use Smoking Status: Never smoker Assessment/Plan All Active Problems GBS (group B Streptococcus carrier), +RV culture, currently (Acute) Severe pre-eclampsia affecting fifth (Acute) Advanced maternal age during in third trimester (Acute) Doing well postoperative day #1 status post primary section for severe PIH which for the most part has resolved. Will discharge from hospital so patient can be with baby in [place]. Patient is to monitor blood pressures every 2 hours and call with elevated blood pressures that persist. She was also instructed to use labetalol 3 times daily rather than twice daily if blood pressures begin to increase and to call us. Discussed possible need for switching to Norvasc and lisinopril if blood pressures remain elevated but for now they are in the safe range for discharge and maintenance. Also discussed recommendation to not drive for several days, to minimize narcotic pain medicine, to call with a fever higher than 101 ?F or inability to have a bowel movement or urinate. Return in 2 weeks for follow-up visit.
== END 2019-02-28 12:20 | disposition home or self-care (01) | DRG 540 ==
LOC: WPOUT 01:52
PROVIDERS: Admitting Provider Obstetrics & Gynecology; Visit Provider Obstetrics & Gynecology
DX: O14.14 Severe pre-eclampsia complicating childbirth (principal); O13.4 Gestational [pregnancy-induced] hypertension without significant proteinuria, complicating childbirth; I16.1 Hypertensive emergency; O99.824 Streptococcus B carrier state complicating childbirth; Z88.0 Allergy status to penicillin; Z3A.34 34 weeks gestation of pregnancy; Z37.0 Single live birth
CPT/HCPCS: 59025; 59050; 81001; 82565; 82570; 84156; 84450; 84460; 84550; 85025; 85027; 85610; 85730; 86850; 86900; 99218; J7120; A4216; G0378; J2405

== ENCOUNTER → 2021-03-23 13:07 | Outpatient (CLI) | payer MEDICAID, SELFPAY ==
[2019-02-26 23:50] VITALS: BMI 35.4
[2021-03-27 19:42] LABS: HPV Reflexed? NOT INDICATED
== END ==
PROVIDERS: Visit Provider Obstetrics & Gynecology
DX: Z12.4 Encounter for screening for malignant neoplasm of cervix (principal)
CPT/HCPCS: 88175; G0145

== ENCOUNTER → 2021-05-02 11:36 | Outpatient (CLI) | payer MEDICAID, SELFPAY ==
[2019-02-26 23:50] VITALS: BMI 35.4
[2021-05-02 15:21] LABS: hCG Titer Quant., Serum < 1 mIU/mL (1-3)
== END ==
PROVIDERS: Visit Provider Obstetrics & Gynecology
DX: N91.2 Amenorrhea, unspecified (principal)
CPT/HCPCS: 36415; 84702

== ENCOUNTER 2021-07-17 04:46 | Inpatient (IN) | payer MEDICAID, SELFPAY ==
[2021-07-17] VITALS (10 sets, daily range): BP systolic 125–171; BP diastolic 67–105; PULSE 92–107; RESP 20–32; TEMP 36.4–37.2; O2SAT 84–95; BMI 28.3
--- NOTE | 2021-07-17 05:08 | EKG12_ITS ---
Test Reason : DYSRHYTHMIA Blood Pressure : / mmHG Vent. Rate : 100 BPM Atrial Rate : 100 BPM P-R Int : 156 ms QRS Dur : 090 ms QT Int : 344 ms P-R-T Axes : 015 -05 034 degrees QTc Int : 443 ms Normal sinus rhythm Septal infarct , age undetermined Abnormal ECG Confirmed by SUJATHA BUCIO, APRIL ([id number]), senior editor SEAN BARRON ([id number]) on 07/17/2021 1:52:02 PM Referred By: SANDRA Confirmed By:APRIL SOLARES MD
--- NOTE | 2021-07-17 05:10 | ED.VIS.DYS ---
HPI History of Present Illness Chief Complaint: Shortness of Breath Narrative Narrative: Patient presents with shortness of breath. She is 11 days into Covid type symptoms. She states it began with loss of sense of smell. She then spiked a fever as high as 102. This evening, when her friend who is a respiratory therapist got to her, she was panting and tachypneic. She states that she has been short of breath over the last few days, over the weekend. She denies any continued fever or chest pain. No other symptoms. Past medical history includes hypertension and depression/anxiety. She has not received her Covid immunizations. [facility] Medical History (Updated 07/17/21 @ 06:[address] Santana Magaña MD) Hypertension Home Medications amlodipine 5 mg PO DAILY 07/17/21 [History Last Taken Unknown] bupropion HCl 150 mg PO DAILY 07/17/21 [History Last Taken Unknown] Allergy/AdvReac Type Severity Reaction Status Date / Time Penicillins Allergy Rash Verified 07/17/21 04:56 Family History (Updated 07/17/21 @ 06:[address] Santana Magaña MD) Other Diabetes Surgical History (Updated 07/17/21 @ 06:[address] Santana Magaña MD) Status post Social History Smoking Status: Never smoker ROS ROS ED ROS Narrative Constitutional: Positive fever-resolved, no chills. HEENT: No sore throat. No neck pain. No loss of vision. No rhinorrhea. Cardiovascular: No chest pain. No palpitations. No pedal edema. Respiratory: Rare cough, positive shortness of breath. Abdominal: No abdominal pain. No nausea. No vomiting. Genitourinary: No dysuria. No hematuria. Musculoskeletal: No myalgias. No arthralgias. Neurologic: No headaches. No dizziness. No lightheadedness. Skin: No rash. No change in color. Psychiatric: No depression. No anxiety. EXAM Physical Exam Narrative Exam Narrative: Afebrile. Vital signs noted. HEENT: Normocephalic. Atraumatic. PERRL, EOMI. Neck soft and supple. No point tenderness or step off. Cardiovascular: Regular rate and rhythm. No murmurs, rubs, or gallops appreciated. Respiratory: No tachypnea. Positive coarse breath sounds/rhonchi bilaterally Gastrointestinal: Abdomen soft, nontender, with normoactive bowel sounds. No rebound or guarding. Neurological: Awake. Alert. Nonfocal, nonlateralizing. Skin: No rash. Normal color. No pallor. Musculoskeletal: No pedal edema. Full range of motion extremities. Const Vital Signs: 07/17/21 04:47 07/17/21 04:57 07/17/21 06:01 Temperature 98.2 F Temperature Source Oral Pulse Rate 107 H 92 Respiratory Rate 24 H 28 H Respiratory Effort Short of Breath Labored Respiratory Depth Deep Respiratory Pattern Tachypnea Blood Pressure 171/105 H 141/91 H Blood Pressure Mean 127 107 Pulse Ox 84 90 94 Oxygen Delivery Method Room Air Nasal Cannula Nasal Cannula Oxygen Flow Rate (L/min) 6 6 MDM MDM MDM Narrative Medical decision making narrative: Patient had a pulse ox of 84% on room air. She was placed on 6 L nasal cannula with resultant oxygenation of 92%. She was administered Decadron 6 mg intravenously. Comprehensive work-up was pursued. Covid swab was sent. Given her hypoxia, I do feel that she will need admission. Her Covid swab is negative. PCR will be obtained because she is showing signs of Covid and is hypoxic. Her D-dimer slightly elevated. She has low potassium of 3.0. I began to replace this intravenously through peripheral line but she complained of burning so this was stopped and she will be given 40 mEq orally. In discussion with the hospitalist as her D-dimer is slightly elevated at 0.9, he ordered a CTA of her chest. Her chest x-ray does show Covid pneumonia. She has borderline neutropenia with a WBC count of 4.6, hemoglobin stable at 14.6, hematocrit 44.2. High-sensitivity troponin negative at 6. EKG demonstrates normal sinus rhythm at 100 bpm without ectopy or acute ST changes. Lactic acid normal at 1.2. She is now satting 92% on 6 L. She will be admitted to the PCU in stable condition. Lab Data Attestation: I reviewed the patient's lab results. Labs: Laboratory Results - last 24 hr 07/17/21 07/17/21 07/17/21 05:00 05:00 05:00 WBC 4.6 RBC 4.90 Hgb 14.6 Hct 44.2 MCV 90.2 MCH 29.8 MCHC 33.0 RDW Std Deviation 43.9 RDW Coeff of Neelima 13.2 Plt Count 243 MPV 9.6 Immature Gran % (Auto) 0.700 Neut % (Auto) 80.5 H Lymph % (Auto) 12.7 L [place] % (Auto) 5.9 Eos % (Auto) 0.0 Baso % (Auto) 0.2 Absolute Neuts (auto) 3.7 Absolute Lymphs (auto) 0.58 L Nucleated RBC % 0 D-Dimer Quant (PE/DVT) 0.90 H* Sodium 135 L Potassium 3.0 L Chloride 102 Carbon Dioxide 24.0 Anion Gap 9 BUN 6 L Creatinine 0.69 Estim Creat Clear Calc 93.59 Est GFR (MDRD) Af Amer 122 Est GFR (MDRD) Non-Af 100 BUN/Creatinine Ratio 8.7 L Glucose 106 Lactic Acid Calcium 8.6 Troponin I High Sens 6 07/17/21 05:00 WBC RBC Hgb Hct MCV MCH MCHC RDW Std Deviation RDW Coeff of Neelima Plt Count MPV Immature Gran % (Auto) Neut % (Auto) Lymph % (Auto) [place] % (Auto) Eos % (Auto) Baso % (Auto) Absolute Neuts (auto) Absolute Lymphs (auto) Nucleated RBC % D-Dimer Quant (PE/DVT) Sodium Potassium Chloride Carbon Dioxide Anion Gap BUN Creatinine Estim Creat Clear Calc Est GFR (MDRD) Af Amer Est GFR (MDRD) Non-Af BUN/Creatinine Ratio Glucose Lactic Acid 1.2 Calcium Troponin I High Sens Radiography Diagnostic Testing: Radiology Impression Chest X-Ray 07/17/21 05:30 IMPRESSION: Multifocal pneumonia. Electronically Signed: Marlon Chambers MD at 5:46 EDT Tel , Service support , Discharge Plan Triage Chief Complaint: Shortness of Breath ED Provider: Koko Pickens Dx/Rx/DC Orders Prescriptions: No Action amlodipine 5 mg tablet 5 mg PO DAILY RF: 0 bupropion HCl 150 mg tablet extended release 24 hr 150 mg PO DAILY RF: 0 Primary Care Provider: Gladys Young
[2021-07-17] MEDS: dexAMETHasone 10 MG/ML Vial 6 MG IV (05:20)
[2021-07-17 05:29] LABS: Absolute Lymphocyte Count 0.58 X10^3/uL (0.83-4.51); Absolute Neutrophil Count 3.7 X10^3/uL (2.0-7.7); Basophil# 0.01 X10^3/uL; Basophil% 0.2 % (0-1); Hematocrit 44.2 % (37-47); Hemoglobin 14.6 g/dL (12.0-15.0); Lymphocyte # 0.58 X10^3/ul (0.83-4.51); Lymphocyte % 12.7 % (19-41); Mean Corpuscular Hgb 29.8 pg (27.0-32.0); Mean Corpuscular Volume 90.2 fL (81-99); Mean Platelet Vol. 9.6 fl (6.2-12.0); Monocyte# 0.27 X10^3/uL; Monocyte% 5.9 % (0-10); NRBC Flagged by Analyzer 0 % (0-5); Neutrophil # 3.66 X10^3/uL (2.7-7.7); Neutrophil % 80.5 % (47-70); POSITIVE DIFFERENTIAL YES; Platelet Count 243 K/mm3 (150-450); RBC Distribution Width CV 13.2 % (11.6-14.6); RBC Distribution Width SD 43.9 fl (35.1-43.9); White Blood Count 4.6 K/mm3 (4.4-11.0)
--- NOTE | 2021-07-17 05:30 | RAD_ITS ---
STUDY: X-RAY CHEST REASON FOR EXAM: Female, 40 years old. Shortness of Breath TECHNIQUE: Portable, upright, AP chest radiograph COMPARISON: None. FINDINGS: Diffuse bilateral pulmonary infiltrates. There is no demonstrated pleural abnormality. Normal size heart. Normal mediastinum and kamille. Normal visualized pulmonary arteries. Normal visualized aortic arch and descending thoracic aorta. Normal visualized thoracic spine. Normal visualized ribs, clavicles, and shoulders. There is no demonstrated abnormality of the visualized soft tissue structures of the upper abdomen. RAD/Chest 1 View (Portable) IMPRESSION: Multifocal pneumonia. Electronically Signed: Marlon Chambers MD at 5:46 EDT Tel , Service support ,
[2021-07-17 05:38] LABS: Differential Indicated SCAN CRITERIA MET
[2021-07-17 05:49] LABS: Anion Gap 9 (5-15); BUN 6 mg/dL (7-18); BUN/Creat Ratio 8.7 RATIO (10-20); Calcium,Total 8.6 mg/dL (8.5-10.1); Chloride 102 mmol/L (98-107); Creatinine, Serum 0.69 mg/dL (0.55-1.02); EST Glomerular Filtration Rate 100 mL/min (>60); Est Glom Filt Rate - Afr Amer 122 mL/min (>60); Estimated Creatinine Clearance 93.59 ml/min; Glucose 106 mg/dL (74-106); Sodium Level 135 mmol/L (136-145); Troponin-I HS 6 pg/mL (3.0-54.0)
[2021-07-17 06:00] LABS: Lactic Acid 1.2 mmol/L (0.4-1.9)
--- NOTE | 2021-07-17 06:04 | HP.PCM.HOS_ITS ---
HPI - General HPI Narrative HERLINDA NOBLES, is a 40 F who presents to the hospital 11 days after onset of Covid symptoms. She started out with a loss of smell and then developed some mild fevers and then yesterday developed shortness of breath. Last evening a friend of hers who is a respiratory therapist came by to see her and noticed that she was panting and tachypneic and recommended she come into the ER. She did have a chest x-ray demonstrated multifocal pneumonia bilaterally and she did test positive for Covid. Of note she is unvaccinated. [facility] Medical History (Updated 07/17/21 @ 06:[address] Santana Magaña MD) Hypertension Home Medications amlodipine 5 mg PO DAILY 07/17/21 [History Last Taken Unknown] bupropion HCl 150 mg PO DAILY 07/17/21 [History Last Taken Unknown] Allergy/AdvReac Type Severity Reaction Status Date / Time Penicillins Allergy Rash Verified 07/17/21 04:56 Family History (Updated 07/17/21 @ 06:[address] Santana Magaña MD) Other Diabetes Surgical History (Updated 07/17/21 @ 06:[address] Santana Magaña MD) Status post Social History Smoking Status: Never smoker ROS Constitutional Constitutional: Reports fever(s); Denies chills, fatigue or malaise Eyes Eyes: Denies blurry vision ENT HEENT: Denies headache(s) or nasal discharge Cardiovascular Cardiovascular: Denies chest pain, dyspnea on exertion or syncope Respiratory/Chest Respiratory/Chest: Reports shortness of breath at rest and shortness of breath with exertion; Denies cough Gastrointestinal Gastrointestinal: Denies constipation, diarrhea, nausea or vomiting Genitourinary Genitourinary: Denies dysuria Neurologic Neurologic: Denies focal weakness, numbness or tremor(s) Psychiatric Psychiatric: Denies anxiety or depression Vital Signs Vital Signs Vital Signs: 07/17/21 04:47 07/17/21 04:57 07/17/21 06:01 Temperature 98.2 F Temperature Source Oral Pulse Rate 107 H 92 Respiratory Rate 24 H 28 H Respiratory Effort Short of Breath Labored Respiratory Depth Deep Respiratory Pattern Tachypnea Blood Pressure 171/105 H 141/91 H Blood Pressure Mean 127 107 Pulse Ox 84 90 94 Oxygen Delivery Method Room Air Nasal Cannula Nasal Cannula Oxygen Flow Rate (L/min) 6 6 Weight Weight: 165 lb Body Mass Index (BMI) 28.3 Physical Exam Const alert, oriented x3 and no apparent distress General Appearance: cooperative HEENT normocephalic and moist oral mucous membranes Eyes PERRL, EOMs intact bilaterally and conjunctivae normal Neck supple and no JVD Resp normal respiratory effort, no retractions and no use of accessory muscles Effort and Inspection: tachypneic Auscultation: crackles bilateral base; Negative for rales, rhonchi or wheezes Cardio regular rate, regular rhythm, S1 normal heart sound, S2 normal heart sound and no murmurs GI soft to palpation, non-tender and non-distended; Negative for hepatosplenomegaly Extremity no clubbing, cyanosis or edema Skin no rashes or lesions noted Neuro no focal motor deficits and no sensory deficits noted Psych affect normal Appearance: appropriate Results Lab / Micro Data Result Diagrams: 07/17/21 05:00 07/17/21 05:00 Labs: Laboratory Results - last 24 hr 07/17/21 05:00: WBC 4.6, RBC 4.90, Hgb 14.6, Hct 44.2, MCV 90.2, MCH 29.8, MCHC 33.0, RDW Std Deviation 43.9, RDW Coeff of Neelima 13.2, Plt Count 243, MPV 9.6, Immature Gran % (Auto) 0.700, Neut % (Auto) 80.5 H, Lymph % (Auto) 12.7 L, White % (Auto) 5.9, Eos % (Auto) 0.0, Baso % (Auto) 0.2, Absolute Neuts (auto) 3.7, Absolute Lymphs (auto) 0.58 L, Nucleated RBC % 0 07/17/21 05:00: Sodium 135 L, Potassium 3.0 L, Chloride 102, Carbon Dioxide 24.0, Anion Gap 9, BUN 6 L, Creatinine 0.69, Estim Creat Clear Calc 93.59, Est GFR (MDRD) Af Amer 122, Est GFR (MDRD) Non-Af 100, BUN/Creatinine Ratio 8.7 L, G lucose 106, Calcium 8.6, Troponin I High Sens 6 07/17/21 05:00: Lactic Acid 1.2 Radiology Impression Chest X-Ray 07/17/21 05:30 IMPRESSION: Multifocal pneumonia. Electronically Signed: Marlon Chambers MD at 5:46 EDT Tel , Service support , Assessment & Plan Assessment/Plan (1) Acute respiratory failure with hypoxia: (2) Pneumonia due to COVID-19 virus: PLAN: 1. Acute hypoxic respiratory failure secondary to COVID-19 pneumonia -She is outside the window for remdesivir, will continue with just Decadron -Continue with nasal cannula at 6 L to maintain an oxygen saturation in the mid 90s, she does desaturate very quickly but she does also recover very quickly. On admission she was 84% on room air, and while in the room with her she did have to go to the bathroom and when she came back she was 78% on room air -She is unvaccinated -We will obtain a sputum culture, and discussed with her the role of proning if she were to get more short of breath -Encourage incentive spirometry and ambulation -D-dimer was mildly elevated 2.9 therefore will obtain a CTA of the chest -Continue with twice daily Lovenox 2. HTN -Blood pressure stable -Continue with Norvasc 3. Anxiety/depression -Stable -Continue with Wellbutrin DVT: Lovenox Charges/Coding Visit Charges Inpatient E&M: 54327 Init Hosp L3
[2021-07-17] MEDS: Potassium Chloride 10mEq/100mL 10 MEQ/100 ML IV.SOLN. 100 MEQ IV BOLUS (06:35)
--- NOTE | 2021-07-17 06:48 | CT_ITS ---
STUDY: CTA CHEST REASON FOR EXAM: Female, 40 years old. r/o PE in covid with elevated Ddimer RADIATION DOSAGE (If Supplied By Facility): CTDIvol = ( 12.07 ) mGy, DLP = ( 760.43 ) mGycm TECHNIQUE: The examination was performed with the intravenous administration of IV 100mL Isovue-370. Post-processing of the angiographic images was performed, with multiplanar reformation and 3D reconstruction. Individualized dose optimization techniques were used for this CT. COMPARISON: Comparison is made with prior chest radiograph dated 07/17/2021 at 5:24 AM. FINDINGS: Limited examination due to patient motion artifact but no obvious pulmonary embolism is seen. Normal enhancement of the main pulmonary artery and right and left pulmonary arteries. Normal enhancement of the bilateral peripheral pulmonary arteries. There is no demonstrated pulmonary embolism. Normal thoracic aorta and visualized great vessels. There is no demonstrated aortic dissection. Normal heart and pericardium. Normal mediastinum. Normal hilar regions. Normal visualized trachea and bronchi. The lungs are well expanded. There are diffuse bilateral pulmonary infiltrates with areas of confluence worse in the lower lobes. Normal pleura. Normal chest wall structures. Normal osseous structures. Fatty infiltration of the liver. CT/CTA Chest W/WO Contrast IMPRESSION: Diffuse bilateral pulmonary infiltrates. Limited evaluation for pulmonary embolism due to patient motion artifact. No obvious pulmonary embolism is seen. Electronically Signed: Ja Domínguez MD at 8:44 EDT , Service support ,
--- NOTE | 2021-07-17 07:23 | NURSING ---
Addendum entered by Sherry Mendiola 07/17/21 07:24: JOSE RAUL BISHOP COVID PNEUMONIA, HYPOXIA Original Note: COVID PNEUMONIA
[2021-07-17] MEDS: Potassium Chloride Oral Soln 20 MEQ/15 ML UDC 40 MEQ PO (09:12)
[2021-07-17] MEDS: Enoxaparin 40 MG/0.4 ML Syringe SC ×2 (09:16→21:15)
--- NOTE | 2021-07-17 13:08 | PN.HOSP_ITS ---
Hospitalist Note The patient has mild symptoms like generalized weakness, mild cough for 12 days but got short of breath, loss of taste and smell and fever 102 Fahrenheit for last 2 days. Patient wants to go home and a small kids but she is on 6 L of oxygen. Patient is in residential housekeeper and H&P reviewed. Patient is unvaccinated Rapid antigen is negative. Covid PCR is pending. CT angiogram shows diffuse bilateral pulmonary infiltrates but no obvious pain but limited evaluation due to motion artifact On DVT prophylaxis Lovenox twice daily. On Decadron. Advised incentive spirometry and prone positioning.
[2021-07-17] MEDS: amLODIPine 5 MG Tablet PO (21:15)
[2021-07-17] MEDS: buPROPion (XL) 150 MG TABLET.XL PO (21:15)
[2021-07-18] VITALS (13 sets, daily range): BP systolic 118–130; BP diastolic 66–75; PULSE 90–105; RESP 20–28; TEMP 36.4–37.7; O2SAT 92–97
--- NOTE | 2021-07-18 04:18 | PCS.PANDOC ---
PANDEMIC DOCUMENTATION INITIATED: Date: 06/19/2021 Time: 190
[2021-07-18 07:25] LABS: Absolute Lymphocyte Count 0.73 X10^3/uL (0.83-4.51); Absolute Neutrophil Count 5.1 X10^3/uL (2.0-7.7); Hematocrit 43.9 % (37-47); Hemoglobin 14.2 g/dL (12.0-15.0); Lymphocyte # 0.73 X10^3/ul (0.83-4.51); Lymphocyte % 11.4 % (19-41); Mean Corp Hgb Conc 32.3 g/dL (32-36); Mean Corpuscular Hgb 29.1 pg (27.0-32.0); Mean Platelet Vol. 9.4 fl (6.2-12.0); Monocyte# 0.54 X10^3/uL; Monocyte% 8.5 % (0-10); NRBC Flagged by Analyzer 0 % (0-5); Neutrophil # 5.08 X10^3/uL (2.7-7.7); Neutrophil % 79.5 % (47-70); Platelet Count 278 K/mm3 (150-450); Red Blood Count 4.88 M/mm3 (4.2-5.4); White Blood Count 6.4 K/mm3 (4.4-11.0)
[2021-07-18 07:54] LABS: Anion Gap 10 (5-15); BUN 16 mg/dL (7-18); BUN/Creat Ratio 20.8 RATIO (10-20); Calcium,Total 8.8 mg/dL (8.5-10.1); Chloride 104 mmol/L (98-107); Creatinine, Serum 0.77 mg/dL (0.55-1.02); EST Glomerular Filtration Rate 88 mL/min (>60); Est Glom Filt Rate - Afr Amer 107 mL/min (>60); Estimated Creatinine Clearance 83.87 ml/min; Glucose 86 mg/dL (74-106); Potassium 3.6 mmol/L (3.5-5.1); Sodium Level 138 mmol/L (136-145)
[2021-07-18] MEDS: dexAMETHasone 4 MG Tablet 6 MG PO (09:29)
[2021-07-18] MEDS: guaiFENesin 1,200 MG Tablet 1200 MG PO ×2 (09:29→20:13)
[2021-07-18] MEDS: Enoxaparin 40 MG/0.4 ML Syringe SC ×2 (09:29→20:14)
--- NOTE | 2021-07-18 10:20 | CASEMGMT ---
LIUDMILA ESTRADA Assessment: Face to Face with pt for initial transition planning/care coordination assessment. RN SEAN introduced self and role at [facility], pt voices understanding and consents to assessment. Pt is A/O x4 and answers all questions appropriately at this time. Pt lying prone with O2 on in no distress. Care providers, pharmacy, and demographics verified/updated. Admitting Dx: COVID PNA PCP: Hannah Specialists: Pt denies. Preferred Pharmacy: [facility] Insurance: [facility] [place] Prescription Benefit: yes LW/HPOA: Pt denies having a LW/DPOA and need for info regarding AD. LNOK: Cricket Hernandez, Living Arrangements: Pt lives with and three kids in a two story house without any steps to enter. Pt reports she is I in ADL's and denies concerns at home. Transportation: Pt drives self and denies concerns with transportation. DME/HHC: Pt denies having any DME or HHC. Pt states she was first tested at [facility]. Her previously has had covid. She can quarantine from her family with a separate bedroom and bathroom. Pt states she has family who can provide groceries and supplies. Provided pt a list of local DME companies, pt chose [employer] in case she needs O2 at dc. Pt states no concerns with going home at time of dc. Pt states no further concerns/needs. CM to follow. Advised pt to ask CM if any further question/concerns/needs arise, voices understanding. Pt Goal: Home Plan: Home
--- NOTE | 2021-07-18 12:07 | PN.HOSP_ITS ---
Subjective Subjective Low-grade fever. Mild tachypnea and sinus tachycardia. On 5 L of oxygen. Dyspnea on exertion. Objective Data Objective Data Vital Signs: Vital Signs Temp Pulse Resp BP Pulse Ox 98.3 F 101 H 24 H 130/66 H 92 07/18/21 09:23 07/18/21 11:45 07/18/21 11:45 07/18/21 09:23 07/18/21 11:45 Oxygen Flow Rate (L/min) 5 Oxygen Delivery Method Nasal Cannula Weight: 165 lb 6.4 oz Body Mass Index (BMI) 28.3 Intake & Output: Intake and Output for Last 24 Hours 07/16/21 07/17/21 07/18/21 23:59 23:59 23:59 Intake Total 45 45 Balance 45 Lab / Micro Data Result Diagrams: 07/18/21 07:10 07/18/21 07:10 Labs: Laboratory Results - last 24 hr 07/17/21 08:57: COVID-19 (SAGE) Detected 07/18/21 07:10: WBC 6.4, RBC 4.88, Hgb 14.2, Hct 43.9, MCV 90.0, MCH 29.1, MCHC 32.3, RDW Std Deviation 43.0, RDW Coeff of Neelima 13.0, Plt Count 278, MPV 9.4, Immature Gran % (Auto) 0.600, Neut % (Auto) 79.5 H, Lymph % (Auto) 11.4 L, [place] % (Auto) 8.5, Eos % (Auto) 0.0, Baso % (Auto) 0.0, Absolute Neuts (auto) 5.1, Absolute Lymphs (auto) 0.73 L, Nucleated RBC % 0 07/18/21 07:10: Sodium 138, Potassium 3.6, Chloride 104, Carbon Dioxide 24.0, Anion Gap 10, BUN 16, Creatinine 0.77, Estim Creat Clear Calc 83.87, Est GFR (MDRD) Af Amer 107, Est GFR (MDRD) Non-Af 88, BUN/Creatinine Ratio 20.8 H, Glucose 86, Calcium 8.8 Micro: Microbiology 07/17/21 05:00 Nasal Secretion SARS-CoV-2 Antigen (Rapid) - Final Physical Exam Narrative Physical exam General: Alert, Oriented x3, Cooperative. Patient is very motivated. HEENT: Atraumatic, PERRLA, EOMI, Normocephalic Oral: No Gingival or Mucosal Lesions/ Ulcerations Neck: Supple, No JVD, Negative Carotid Bruits Lungs: Air entry diminished in bilateral lung bases. Bilateral lung bases crepitations present. Cardiovascular: Sinus rhythm, Normal S1, Normal S2, No murmurs Abdomen: Bowel Sounds Present, Soft, Non Tender, Non-Distended : No renal angle tenderness. No suprapubic tenderness. Extremities: No edema, Capillary Refill Less than 3 Seconds Skin: No rashes, No breakdown Musculoskeletal: No Tenderness to Palpation of Joints or Extremities Neurological: Cranial nerves II-XII grossly intact, DTR 2+/4 and Symmetrical, Neuro grossly intact Psych/Mental Status: Normal Affect, Appropriate. Assessment & Plan Assessment/Plan (1) Acute respiratory failure with hypoxia: (2) Pneumonia due to COVID-19 virus: PLAN: 1. Acute hypoxic respiratory failure secondary to COVID-19 pneumonia: [facility] Out of window for remdesivir. On Decadron. Incentive spirometry and Pep. On Mucinex. -D-dimer elevated 2.9 therefore CTA was done. CTA reported no obvious pulmo nary embolism but diffuse bilateral pulmonary infiltrates consistent with multifocal viral pneumonia. -Continue with twice daily Lovenox 2. HTN -Blood pressure is controlled on Norvasc. 3. Anxiety/depression -Continue with Wellbutrin DVT: Lovenox as mentioned above Clinical Impression(s) from Imaging Studies Chest X-Ray 07/17/21 05:30 IMPRESSION: Multifocal pneumonia. Chest CTA 07/17/21 06:48 IMPRESSION: Diffuse bilateral pulmonary infiltrates. Limited evaluation for pulmonary embolism due to patient motion artifact. No obvious pulmonary embolism is seen. Electronically Signed: Ja Domínguez MD at 8:44 EDT , Service support , Charges/Coding Visit Charges Inpatient E&M: 96951 Subs Hosp L2
[2021-07-18] MEDS: Sodium Chloride 0.65% 1 SPRAY SPRAY.BTL 2 SPRAY NASAL (16:03)
[2021-07-18] MEDS: Acetaminophen 325 MG Tablet 650 MG PO (20:13)
[2021-07-18] MEDS: MELATONIN 3 MG TABLET PO (20:14)
[2021-07-18] MEDS: buPROPion (XL) 150 MG TABLET.XL PO (20:14)
[2021-07-18] MEDS: amLODIPine 5 MG Tablet PO (20:14)
[2021-07-18] MEDS: 0.9% Saline Lock 10 ML Syringe IV (20:15)
[2021-07-19] VITALS (7 sets, daily range): BP systolic 114–136; BP diastolic 69–82; PULSE 78–92; RESP 18–20; TEMP 34.8–36.6; O2SAT 93–96
[2021-07-19] MEDS: dexAMETHasone 4 MG Tablet 6 MG PO (08:35)
[2021-07-19] MEDS: Enoxaparin 40 MG/0.4 ML Syringe SC ×2 (08:35→22:03)
[2021-07-19] MEDS: guaiFENesin 1,200 MG Tablet 1200 MG PO ×2 (08:36→22:03)
--- NOTE | 2021-07-19 13:14 | PCM.PN.HOSP ---
Subjective Subjective No fever. Heart rate and blood pressure controlled. Objective Data Objective Data Vital Signs: Vital Signs Temp Pulse Resp BP Pulse Ox 94.6 F L 88 20 H 134/80 H 96 07/19/21 11:54 07/19/21 11:54 07/19/21 11:54 07/19/21 11:54 07/19/21 11:54 Oxygen Flow Rate (L/min) 4 Oxygen Delivery Method Nasal Cannula Weight: 164 lb 3.2 oz Body Mass Index (BMI) 28.3 Intake & Output: Intake and Output for Last 24 Hours 07/17/21 07/18/21 07/19/21 23:59 23:59 23:59 Intake Total 45 / 45 Balance 45 / 45 Lab / Micro Data Result Diagrams: 07/18/21 07:10 07/18/21 07:10 Micro: Microbiology 07/17/21 05:00 Blood Culture (Wb) - Anticubital Right Blood Culture - Preliminary No growth in 48 hours. 07/17/21 05:00 Nasal Secretion SARS-CoV-2 Antigen (Rapid) - Final Physical Exam Narrative Physical exam General: Alert, Oriented x3, Cooperative. Patient very motivated. HEENT: Atraumatic, PERRLA, EOMI, Normocephalic Oral: No Gingival or Mucosal Lesions/ Ulcerations Neck: Supple, No JVD, Negative Carotid Bruits Lungs: Air entry diminished in bilateral lung bases. Bilateral lung bases crepitations present. Cardiovascular: Sinus rhythm, Normal S1, Normal S2, No murmurs Abdomen: Bowel Sounds Present, Soft, Non Tender, Non-Distended : No renal angle tenderness. No suprapubic tenderness. Extremities: No edema, Capillary Refill Less than 3 Seconds Skin: No rashes, No breakdown Musculoskeletal: No Tenderness to Palpation of Joints or Extremities Neurological: Cranial nerves II-XII grossly intact, DTR 2+/4 and Symmetrical, Neuro grossly intact Psych/Mental Status: Normal Affect, Appropriate. Assessment & Plan Assessment/Plan (1) Acute respiratory failure with hypoxia: (2) Pneumonia due to COVID-19 virus: PLAN: 1. Acute hypoxic respiratory failure secondary to COVID-19 pneumonia: Patient is admitted on [facility] floor. Out of window for remdesivir. On Decadron. Incentive spirometry and Pep. On Mucinex. -D-dimer elevated 2.9 therefore CTA was done. CTA reported no obvious pulmonary embolism but diffuse bilateral pulmonary infiltrates consistent with multifocal viral pneumonia. -Continue with twice daily Lovenox 07/19: Patient encouraged for incentive spirometry and Pep. On Mucinex. 2. HTN -Blood pressure is controlled on Norvasc. 3. Anxiety/depression -Continue with Wellbutrin DVT: Lovenox as mentioned above Clinical Impression(s) from Imaging Studies Chest X-Ray 07/17/21 05:30 IMPRESSION: Multifocal pneumonia. Chest CTA 07/17/21 06:48 IMPRESSION: Diffuse bilateral pulmonary infiltrates. Limited evaluation for pulmonary embolism due to patient motion artifact. No obvious pulmonary embolism is seen. Electronically Signed: Ja Domínguez MD at 8:44 EDT , Service support , Charges/Coding Visit Charges Inpatient E&M: [id number] Subs Hosp L2
[2021-07-19] MEDS: Potassium Chloride Oral Tablet 20 MEQ 40 MEQ PO ×2 (13:26→16:54)
[2021-07-19] MEDS: Acetaminophen 325 MG Tablet 650 MG PO ×2 (13:27→22:04)
[2021-07-19] MEDS: buPROPion (XL) 150 MG TABLET.XL PO (22:04)
[2021-07-19] MEDS: amLODIPine 5 MG Tablet PO (22:04)
[2021-07-19] MEDS: MELATONIN 3 MG TABLET PO (22:04)
[2021-07-20] VITALS (8 sets, daily range): BP systolic 116–130; BP diastolic 73–87; PULSE 76–95; RESP 16–20; TEMP 36.3–36.6; O2SAT 88–98
[2021-07-20] MEDS: Acetaminophen 325 MG Tablet 650 MG PO (04:24)
[2021-07-20 07:45] LABS: Anion Gap 4 (5-15); BUN 18 mg/dL (7-18); BUN/Creat Ratio 23.5 RATIO (10-20); Calcium,Total 8.6 mg/dL (8.5-10.1); Chloride 107 mmol/L (98-107); Creatinine, Serum 0.76 mg/dL (0.55-1.02); EST Glomerular Filtration Rate 89 mL/min (>60); Est Glom Filt Rate - Afr Amer 107 mL/min (>60); Estimated Creatinine Clearance 84.97 ml/min; Glucose 82 mg/dL (74-106); Magnesium 2.4 mg/dL (1.6-2.6); Phosphorus 2.5 mg/dL (2.5-4.9); Potassium 4.6 mmol/L (3.5-5.1); Sodium Level 137 mmol/L (136-145)
[2021-07-20] MEDS: Enoxaparin 40 MG/0.4 ML Syringe SC (09:06)
[2021-07-20] MEDS: dexAMETHasone 4 MG Tablet 6 MG PO (09:06)
[2021-07-20] MEDS: guaiFENesin 1,200 MG Tablet 1200 MG PO (09:06)
--- NOTE | 2021-07-20 10:32 | PCM.DC ---
Discharge Instructions Diet Discharge Diet: No restrictions and 2000 mg Sodium Diet Activity Discharge Activity: Return to Normal Activity, May Not Drive and - Weight Bearing Status: Weight bearing as tolerated Dressing / Incision Call your doctor if you observe: Fever of 101 or Higher, Coldness, Increased Pain, Numbness or Tingling, Change in Color, Inability to urinate, Inability to have a bowel movement, Using more than 1 pad per hour, Shortness of breath, Dizziness, Fainting spells, Swelling in the ankles, Chest pain, Prolonged hiccupping, Increased palpitations (irregular heartbeat), Calf discomfort and Uncontrolled pain Follow Up Care Test Results: Test results from this visit will be discussed in further detail at your follow-up appointment, if applicable. Discharge Plan Admission Admit Date/Time: 07/17/21 06:03 Primary Reason for Your Visit: Acute hypoxic respiratory failure due to COVID-19 pneumonia Attending Provider: Adam Edgar Primary Care Provider: Gladys Young Discharge Orders/Prescriptions Prescriptions: New dexamethasone 4 mg Tablet 6 mg PO DAILY Qty: 9 RF: 0 Mucus Relief ER 1,200 mg Tablet Extended Release 12hr 1,200 mg PO BID Qty: 14 RF: 0 Eliquis 2.5 mg tablet 2.5 mg PO BID Qty: 30 RF: 0 Continued amlodipine 5 mg tablet 5 mg PO DAILY RF: 0 bupropion HCl 150 mg tablet extended release 24 hr 150 mg PO DAILY RF: 0 Referrals / Follow Up: Gladys Young [Primary Care Provider] - Within 2 Weeks (Virtual visit may be okay) Disposition Disposition (needs filled in before D/C Order can be placed): Home, Self Care
--- NOTE | 2021-07-20 12:29 | CASEMGMT ---
Addendum entered by Jae Tucker 07/20/21 16:22: TC received from [facility] @ [facility]. O2 will be covered @ 100%. ETA of O2 portable tank will be b/w [id number]. Pt notified of same and was also provided w/[facility] contact info. She is aware to call them when she arrives home to have concentrator and additional O2 tanks delivered to her room. She voices understanding. TC to Kelsy @ [employer] and she was made aware of above. 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 Addendum entered by Jae Tucker 07/20/21 14:53: TC from [employer] who states [employer] is not in-network w/pt's insurance. Call placed to pt and she was made aware. [facility] is the preferred provider for [facility] Community [facility] [place]. TC to pt and she was made aware. New script obtained from Dr Edgar and faxed to [facility]. Call placed to [facility] for [facility] and ETA of O2 delivery per pt's inquiry/request. Awaiting response. Original Note: LIUDMILA ESTRADA NOTE: Ambulatory home oxygen testing completed. Pt qualifies for O2 @ 2 l/m w/exertion. Script obtained for O2 and faxed to [employer] at this time. Call placed to [employer] and spoke w/Kelsy. She was made aware pt is discharging today and oxygen to be delivered to pt's room prior to discharge. Call placed to pt and she was made aware of above. Questions answered. She denies having any other questions and denies further d/c needs. Bruna CANTU RN, CM
--- NOTE | 2021-07-20 12:48 | DS.PCM_ITS ---
Providers Date of Admission: 07/17/21 Primary Care Physician: Gladys Young Reason For Visit: COVID PNEUMONIA Diagnosis Discharge Diagnosis (1) Acute respiratory failure with hypoxia: Status: Acute Code(s): J96.01 - Acute respiratory failure with hypoxia (2) Pneumonia due to COVID-19 virus: Status: Acute Code(s): U07.1 - COVID-19; J12.82 - Pneumonia due to coronavirus disease 2019 Medications at Discharge Home Medications amlodipine 5 mg PO DAILY 07/17/21 bupropion HCl 150 mg PO DAILY 07/17/21 apixaban [Eliquis] 2.5 mg PO BID #30 tab 07/20/21 dexamethasone 6 mg PO DAILY #9 tab 07/20/21 guaifenesin [Mucus Relief ER] 1,200 mg PO BID #14 tab 07/20/21 Hospital Course Summary of Care Provided Hospital Course: This is a 40-year-old female is being admitted for shortness of breath, cough, URI symptoms features consistent with COVID-19. Her symptoms onset were 11 days before her admission on 07/17. . Acute hypoxic respiratory failure secondary to COVID-19 pneumonia: Patient is admitted on [facility] floor. Out of window for remdesivir. On Decadron. Incentive spirometry and Pep. On Mucinex. -D-dimer elevated 2.9 therefore CTA was done. CTA reported no obvious pulmonary embolism but diffuse bilateral pulmonary infiltrates consistent with multifocal viral pneumonia.Continue with twice daily Lovenox. Home oxygen qu alification test was done Patient has been 93% on room air for 3 hours yesterday and today in the morning. At rest 98% on 2 L of oxygen, 88% on ambulating on room air 92% on 2 L of oxygen. Continue Mucinex, Eliquis 2.5 mg twice daily as DVT prophylaxis and Decadron 6 mg to complete a total of 10 days. Patient is ambulatory in home and in the community and requires home oxygen with portability. 2. HTN -Blood pressure is controlled on Norvasc. 3. Anxiety/depression -Continue with Wellbutrin DVT: Lovenox in the hospital Discharge medication reconciliation done. Discharge follow-up instructions completed. Discharge process discussed with the patient and all questions were answered to patient's satisfaction. Total time spent, exact 35 minutes on discharge meds reconciliation, exa mination, coordination of care with nurses and ancillary staff, review of imaging and blood test and discussion with the patient on follow-up instructions Clinical Impression(s) from Imaging Studies Chest X-Ray 07/17/21 05:30 IMPRESSION: Multifocal pneumonia. Chest CTA 07/17/21 06:48 IMPRESSION: Diffuse bilateral pulmonary infiltrates. Limited evaluation for pulmonary embolism due to patient motion artifact. No obvious pulmonary embolism is seen. Physical Exam Narrative Patient not hypoxic on room air. Hotness of breath is resolved. Physical exam General: Alert, Oriented x3, Cooperative. Patient very motivated. HEENT: Atraumatic, PERRLA, EOMI, Normocephalic Oral: No Gingival or Mucosal Lesions/ Ulcerations Neck: Supple, No JVD, Negative Carotid Bruits Lungs: Air entry diminished in bilateral lung bases. Bilateral lung bases crepitations present. Cardiovascular: Sinus rhythm, Normal S1, Normal S2, No murmurs Abdomen: Bowel Sounds Present, Soft, Non Tender, Non-Distended : No renal angle tenderness. No suprapubic tenderness. Extremities: No edema, Capillary Refill Less than 3 Seconds Skin: No rashes, No breakdown Musculoskeletal: No Tenderness to Palpation of Joints or Extremities Neurological: Cranial nerves II-XII grossly intact, DTR 2+/4 and Symmetrical, Neuro grossly intact Psych/Mental Status: Normal Affect, Appropriate. Weight / BMI Weight Weight: 164 lb 3.91 oz Body Mass Index (BMI) 28.3 ABG / Lab / Microbiology Data Result Diagrams: 07/18/21 07:10 07/20/21 06:50 Laboratory: Laboratory Results - last 24 hr 07/20/21 06:50: Sodium 137, Potassium 4.6, Chloride 107, Carbon Dioxide 26.0, Anion Gap 4 L, BUN 18, Creatinine 0.76, Estim Creat Clear Calc 84.97, Est GFR (MDRD) Af Amer 107, Est GFR (MDRD) Non-Af 89, BUN/Creatinine Ratio 23.5 H, Glucose 82, Calcium 8.6, Phosphorus 2.5, Magnesium 2.4 Microbiology: Microbiology 07/17/21 05:00 Blood Culture (Wb) - Anticubital Right Blood Culture - Preliminary No growth in 48 hours. 07/17/21 05:00 Nasal Secretion SARS-CoV-2 Antigen (Rapid) - Final D/C Instructions Discharge Diet: No restrictions and 2000 mg Sodium Diet Weight Bearing Status: Weight bearing as tolerated Call your doctor if you observe: Fever of 101 or Higher, Coldness, Increased Pain, Numbness or Tingling, Change in Color, Inability to urinate, Inability to have a bowel movement, Using more than 1 pad per hour, Shortness of breath, Dizziness, Fainting spells, Swelling in the ankles, Chest pain, Prolonged hiccupping, Increased palpitations (irregular heartbeat), Calf discomfort and Uncontrolled pain Meaningful Use Info Meaningful Use Diagnoses (Choose all that apply): None applicable Discharge Plan Admission Admit Date/Time: 07/17/21 06:03 Primary Reason for Your Visit: Acute hypoxic respiratory failure due to COVID-19 pneumonia Attending Provider: Adam Edgar Primary Care Provider: Gladys Young Discharge Orders/Prescriptions Prescriptions: New dexamethasone 4 mg Tablet 6 mg PO DAILY Qty: 9 RF: 0 Mucus Relief ER 1,200 mg Tablet Extended Release 12hr 1,200 mg PO BID Qty: 14 RF: 0 Eliquis 2.5 mg tablet 2.5 mg PO BID Qty: 30 RF: 0 Continued amlodipine 5 mg tablet 5 mg PO DAILY RF: 0 bupropion HCl 150 mg tablet extended release 24 hr 150 mg PO DAILY RF: 0 Referrals / Follow Up: Gladys Young [Primary Care Provider] - Within 2 Weeks (Virtual visit may be okay) Disposition Disposition (needs filled in before D/C Order can be placed): Home, Self Care Charges/Coding Visit Charges Inpatient E&M: [id number] Disch Hosp
--- NOTE | 2021-07-21 16:40 | CASEMGMT ---
LIUDMILA ESTRADA Discharge Follow-Up Phone Call. Yuliya: 6 Strata: 1 Discharge Date: 07/20/21 Adm Dx: 07/20/21 Call to pt to inquire about how she has been doing since being discharged from the hospital. Pt stated, I'm actually doing pretty good. Pt states she has been monitoring her pulse ox closely and it has not dropped below 90% even w/exertion w/the O2 in place. She states she has been trying to take short walks in the house and was able to go up the stairs to do her daughter's hair for school today. Reviewed w/pt importance of not only herself, but her family to be quarantining. Pt states she is aware but states her kids have been quarantined 85-90% of the time since school started and that she will be out of quarantine by Saturday. Pt states she contacted [facility] when she arrived home last evening. Oxygen was delivered to her home today. She states she was able to get 3 of her new medications at [facility] yesterday w/out difficulty. The Mucinex was not available until today, so they picked up OTC Mucinex. Pt has not scheduled appt w/PCP Hannah yet but plans to do so. She denies having any questions about the discharge instructions or medications and she denies other needs/concerns. She states she appreciated all the care she received @ [facility] and thanked LIUDMILA ESTRADA for calling. Bruna CANTU RN, CM
== END 2021-07-20 18:38 | disposition home or self-care (01) | DRG 137 ==
LOC: ED 07:22 → PCU 07:30 → MS3 19:47
PROVIDERS: Admitting Provider Family Medicine; Emergency Provider Emergency Medicine; PCP Family Medicine; Visit Provider Internal Medicine
DX: U07.1 COVID-19 (principal); J12.82 Pneumonia due to coronavirus disease 2019; J96.01 Acute respiratory failure with hypoxia; R79.89 Other specified abnormal findings of blood chemistry; E87.6 Hypokalemia; I10 Essential (primary) hypertension; F32.9 Major depressive disorder, single episode, unspecified; F41.9 Anxiety disorder, unspecified; Z79.01 Long term (current) use of anticoagulants; Z79.899 Other long term (current) drug therapy
CPT/HCPCS: 36415; 71045; 71275; 80048; 83605; 83735; 84100; 84484; 85025; 85379; 87040; 87426; 87635; 93005; 94667; 94668; 94762; 99251; 99284; J7050; Q9967; U0005; A4216; G0463; U0003